=== PATIENT | female | born 1960 | race Caucasian/White ===

== ENCOUNTER 2019-11-20 15:56 | Emergency (ER) | payer OTHER ==
--- OUTSIDE RECORDS SUMMARY | 2019-11-20 17:47 | XMS REPORT | Clinical Summary ---
:1960 Author Organization [facility] Address [address] [place] [address] Care Team Providers Name Role Phone Unavailable Primary Care Provider Unavailable Allergies No Known Allergies Medications Medication Sig Dispensed Refills Start Date End Date Status fLUoxetine (PROZAC) 10 Take 10 mg by 0 Active MG capsule mouth daily. lisinopril Take 10 mg by 0 Activ e (PRINIVIL,ZESTRIL) 10 mouth daily. MG tablet amLODIPine (NORVASC) 10 Take 10 mg by 0 Active MG tablet mouth daily. Active Problems Not on file Social History Tobacco Use Types Packs/Day Years Used Date Never Assessed Sex Assigned at Date Recorded Not on file Job Start Date Occupation Industry Not on file Not on file Not on file Travel History Travel Start Travel End No recent travel history available. Last Filed Vital Signs Not on file Plan of Treatment Not on file Results Not on fileafter 11/19/2018
--- OUTSIDE RECORDS SUMMARY | 2019-11-20 17:47 | XMS REPORT | Clinical Summary ---
:1960 Author Organization [facility] Address [address] [place] [address] Care Team Providers Name Role Phone Sukumar Moura Primary Care Provider Allergies No Known Allergies Medications Medication Sig Dispensed Refills Start Date End Date Status lisinopril 20 mg tablet 1 Take by mouth 0 Active tablet, hydroCHLOROthiazide daily. 25 MG tablet 0.5 tablet FLUoxetine (PROzac) 40 MG Take 40 mg by 0 Active capsule mouth daily. amLODIPine (NORVASC) 5 mg Take 5 mg by 0 Active tablet mouth daily. dextroamphetamine-amphetami Take 30 mg by 0 Active ne (AdderalL) 30 mg tablet mouth daily. acetaminophen (TYLENOL Take by 0 Active ARTHRITIS PAIN ORAL) mouth. Active Problems Problem Noted Date Primary osteoarthritis of right hand 06/30/2019 Overview: Right index finger dip joint Encounters Date Type Specialty Care Team Description 07/01/2019 Surgery Orthopedic Surgery Marilin Calhoun DESIS RIGHT MD Светлана INDEX FINGER DI P JOINT WITH INTE RNAL FIXATION. 07/01/2019 Anesthesia Event Orthopedic Surgery Suraj Harrison MD Jatzlau, Amybeth, APRN 07/01/2019 Hospital Encounter Orthopedic Surgery Marilin Calhoun MD 06/30/2019 Pre-Admit Testing Pre-Admission Marilin Calhoun Preop testing Appointment Testing MD Светлана (Primary Dx) after 11/19/2018 Social History Tobacco Use Types Packs/Day Years Used Date Never Smoker Smokeless Tobacco: Never Used Alcohol Use Drinks/Week oz/Week Comments Yes Sex Assigned at Date Recorded Not on file Job Start Date Occupation Industry Not on file Not on file Not on file Travel History Travel Start Travel End No recent travel history available. Last Filed Vital Signs Vital Sign Reading Time Taken Comments Blood Pressure 124/79 07/01/2019 10:40 AM BOILER ERECTOR Pulse 91 07/01/2019 10:42 AM BOILER ERECTOR Temperature 36.9 C (98.4 F) 07/01/2019 10:42 AM BOILER ERECTOR Respiratory Rate 17 07/01/2019 10:40 AM BOILER ERECTOR Oxygen Saturation 97% 07/01/2019 10:42 AM BOILER ERECTOR Inhaled Oxygen Concentration - - Weight 82.6 kg (182 lb 3.2 oz) 07/01/2019 6:47 AM BOILER ERECTOR Height 165.1 cm (5' 5") 07/01/2019 6:47 AM BOILER ERECTOR Body Mass Index 30.32 07/01/2019 6:47 AM BOILER ERECTOR Plan of Treatment Health Maintenance Due Date Last Done Comments CERVICAL CANCER SCREENING 11/22/1983 BREAST CANCER SCREENING 2012 COLONOSCOPY SCREENING 2012 SHINGLES VACCINES (#1) 2012 INFLUENZA VACCINE 12/27/2019 Implants Implanted Type Area Institution Director Device Shelf Model / Identifier Expiration Serial / Date Lot Screw Bone Micr 2.5x26mm Acutrak 2 - [id number] Orthopedic [employer] AT2 C26 / Implanted: 07/01/2019 at [facility] (Quantity not on file) Trauma I mplants / LOT NA Procedures Procedure Name Priority Date/Time Associated Comments Diagnosis MI AN ELECTIVE Routine 07/01/2019 7:56 Results f or this SUPRAGLOTTIC AIRWAY AM BOILER ERECTOR procedur e are in the results section. ORIF, FINGER 07/01/2019 7:23 Primary AM BOILER ERECTOR osteoarthritis, right hand Case Notes EST 1HR, MINI C-ARM, TRUMPF TABLE, ACCUMED SCREW Special Needs EST 1HR, MINI C-ARM, TRUMPF TABLE, ACCUMED SCREW ECG PRE/POST OP Routine 06/30/2019 3:04 PM Preop testing Resu lts for this BOILER ERECTOR procedure are i n the results section . ESTIMATED GFR Routine 06/30/2019 2:16 PM Results for this BOILER ERECTOR procedure are i n the results section . CBC HEMOGRAM Routine 06/30/2019 2:16 PM Preop testing Results for this BOILER ERECTOR procedure are i n the results section . BASIC METABOLIC PANEL Routine 06/30/2019 2:16 PM Preop testin g Results for this BOILER ERECTOR procedure are i n the results section . after 11/19/2018 Results Airway (07/01/2019 7:56 AM BOILER ERECTOR) Narrative Performed At Ben Mujica 07/01/2019 7:57 AM Airway Date/Time: 07/01/2019 7:29 AM Performed by: Ben Mujica Authorized by: Suraj Harrison MD Location: OR Urgency: Elective Difficult Airway: No Resident/WEB SITE ADMIN/AA: Ben Mujica Preoxygenated with 100% O2: Yes C-spine Precautions Maintained Throughou t: Yes Mask Ventilation: Easy mask Final Airway Type: Supraglottic airway Final LMA: I-Gel LMA Size: 4 Number of Attempts at Approach: 1 atraumatic ECG Pre/Post Op (06/30/2019 3:04 PM BOILER ERECTOR) Pathologist Sig nature Ventricular rate 80 [facility] Atrial rate 80 [facility] MI interval 132 [facility] QRSD interval 74 [facility] QT interval 410 [facility] QTC interval 472 [facility] P axis 1 39 [facility] QRS axis 1 -1 [facility] T wave axis 39 [facility] MUSE EKG impression Normal sinus HM MUSE rhythm-Normal ECG-In automated comparison with ECG of 30-JUN-2019 14:54,-Nonspecific T wave abnormality no longer evident in Anterior leads- Specimen Narrative Performed At This result has an attachment that is no t available. Performing Organization Address City/[facility] Phone Number [facility] [address] [place] [address] Estimated GFR (06/30/2019 2:16 PM BOILER ERECTOR) Estimated GFR >=90 mL/min/1.73 [facility] Comment: m2 HOSPITAL Catergory Units Interpretation G1 >=90 Normal or high G2 60-89 Mildly decreased G3a 45-59 Mildly to moderately decreas ed G3b 30-44 Moderately to severely decre ased G4 15-29 Severely decreased G5 <15 Kidney failure The eGFR was calculated using the Chronic Kidney Disea se Epidemiology Collaboration (CKD-EPI) equation. Interpretation is based on recommendations of the National Kidney Foundation-Kidney Disease Outcomes Tor lity Initiative (NKF-KDOQI) published in 2014. Specimen Plasma specimen Performing Organization Address City/State/Zipcode Phone Number [facility] DEPARTMENT OF PATHOLOGY AND [address] [place], [place] [address] [address] CBC hemogram (06/30/2019 2:16 PM BOILER ERECTOR) [facility] WBC 9.19 4.50 - 11.00 k/uL [facility] RBC 5.12 4.20 - 5.50 m/uL [facility] HGB 15.7 12.0 - 16.0 g/dL [facility] HCT 47.5 (H) 37.0 - 47.0 % [facility] MCV 92.8 82.0 - 100.0 fL [facility] MCH 30.7 27.0 - 34.0 pg [facility] MCHC 33.1 31.0 - 37.0 g/dL [facility] RDW - SD 42.1 37.0 - 55.0 fL [facility] MPV 9.8 8.8 - 13.2 fL [facility] Platelet count 373 150 - 400 k/uL [facility] Nucleated RBC 0.00 /100 WBC [facility] Specimen Blood Performing Organization Address City/[facility]ode Phone Number [facility] DEPARTMENT OF PATHOLOGY AND [address] [place] [address] [phone] [address] Basic metabolic panel (06/30/2019 2:16 PM BOILER ERECTOR) [facility] Sodium 135 135 - 148 mEq/L [facility] Potassium 4.6 3.5 - 5.0 mEq/L [facility] Chloride 95 (L) 98 - 112 mEq/L [facility] CO2 25 24 - 31 mEq/L [facility] Anion gap 15@ANIO 7 - 15 mEq/L [facility] BUN 5 (L) 6 - 20 mg/dL [facility] Creatinine 0.60 0.50 - 0.90 mg/dL [facility] Glucose 129 (H) 65 - 99 mg/dL [facility] Calcium 10.4 (H) 8.3 - 10.2 mg/dL [facility] Specimen Plasma specimen Performing Organization Address City/[facility]ode Phone Number [facility] DEPARTMENT OF PATHOLOGY AND [address] [place] [address] [phone] [address] after 11/19/2018 (Home) [place], [place] [phone] (Work) Advance Directives For more information, please contact: [phone] Type Date Recorded 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
--- OUTSIDE RECORDS SUMMARY | 2019-11-20 17:48 | XMS REPORT ---
:1960 Author Organization [employer] Care Team Providers Name Role Phone Manjit Mourah Provider Role Unavailable Allergies, Adverse Reactions, Alerts Substance Reaction Event Type N.K.D.A. Info Not Available Non Drug Allergy Problems Problem Type Condition Code Onset Dates Condition Statu s Problem Depression with anxiety F41.8 Acti ve Problem Primary osteoarthritis of left M19.042 Active hand Problem HTN, goal below 140/90 I10 Activ e Problem Alcohol abuse F10.10 Active Assessment Noncompliance w/medication Z91.14 A ctive treatment due to intermit use of medication Problem Mixed hyperlipidemia E78.2 Active Assessment Finger pain, right M79.644 Active Problem Other chronic pain G89.29 Active Problem Primary osteoarthritis, right hand M19.041 Active Problem GERD without esophagitis K21.9 Act matthew Problem Insect bite, initial encounter W57.XXXA Active Problem Urinary tract infection, site not N39.0 Active specified Assessment Primary osteoarthritis of left M19.042 Active hand Assessment Primary osteoarthritis, right hand M19.041 Active Assessment Alcohol abuse F10.10 Active Assessment Adult BMI 29.0-29.9 kg/sq m Z68.29 Active Assessment Elevated LFTs R94.5 Active Assessment Mixed hyperlipidemia E78.2 Active Assessment GERD without esophagitis K21.9 Act matthew Assessment HTN, goal below 140/90 I10 Activ e Assessment Depression with anxiety F41.8 Acti ve Medications Medication Code Code Instructions Start End Status Dosage System Date Date Omeprazole ND 31783866889 40 MG Orally Active 1 ca psule Once a day Fluoxetine HCl ND 93769986238 40 MG Orally Active 1 capsule Once a day Pennsaid [facility] 64527305047 2 % Transdermal Active 2 p umps to Twice a day affected area Amlodipine ND 90014838446 5 MG Orally Once Active 1 tablet Besylate a day Lisinopril-Hyd ND 13563865787 20-25 MG Orally Activ e take 1 rochlorothiazi Once a day tablet de daily Lisinopril-Hyd ND 27919145740 20-12.5 MG Active TA KE 1 rochlorothiazi TABLET BY de MOUTH ONCE A DAY Albuterol [facility] 57087027070 108 (90 Base) August Active 2 pu ffs as Sulfate HFA MCG/ACT 2018 needed Inhalation every 6 hrs Results No Known Results Summary Purpose [employer]ClinicalWorks Submission
--- OUTSIDE RECORDS SUMMARY | 2019-11-20 17:48 | XMS REPORT | Continuity of Care Document ---
:1960 Author Organization [facility] t Address [address] [place] [address] Care Team Providers Name Role Phone Sukuamr Moura Primary Care Physician Светлана Calhoun MD Attending Clinician Aldo Harrison MD Attending Clinician Andrew HENDRICKS Attending Clinician RC Admitting Clinician Unavailable Payers Payer Name Policy Type Policy Number Effective Date Expiration Date Rufino BRANDON OPEN xxxxxxxxxxx 2017 [place] ACCESS/NETWORKxx 00:00:00 Methodis t 8-PresentHMO Problems Condition Condition Condition Status Onset Resolution Last Treating Co mments Source Name Details Category Date Date Treatment Clinician Date Primary Primary Disease Active Overview: [place] osteoarthr osteoarthr 2-03 Right Nd thodi itis of itis of 00:00: index st right hand right hand 00 finger dip joint Insect Insect Problem Active [facility] bite, bite, [facility] - initial initial Memoria encounter encounter l Outpati ent Clinics Urinary Urinary Problem Active [facility] tract tract [facility] - infection, infection, Me moria site not site not l specified specified Outp ati ent Clinics HTN, goal HTN, goal Diagnosis Active [facility] below below [facility] - 140/90 140/90 [facility] l Outpati ent Clinics GERD GERD Diagnosis Active [facility] without without [facility] - esophagiti esophagiti Me moria s s l Outpati ent Clinics Primary Primary Diagnosis Active [facility] osteoarthr osteoarthr Emelina kes - itis of itis of Memoria left hand left hand [facility] Depression Depression Diagnosis Active [facility] with with [facility] - anxiety anxiety [facility] Primary Primary Diagnosis Active [facility] osteoarthr osteoarthr Emelina kes - itis, itis, Memoria right hand right hand l [facility] Alcohol Alcohol Diagnosis Active [facility] Mixed Mixed Diagnosis Active [facility] hyperlipid hyperlipid Emelina kes - emia emia [facility] Other Other Problem Active [facility] chronic chronic [facility] - pain pain [facility] Noncomplia Noncomplia Diagnosis Active [facility] nce nce [facility] - w/medicati w/medicati Me moria on on l treatment treatment Outp ati due to due to ent intermit intermit Clinic s use of use of medication medication Finger Finger Diagnosis Active [facility] pain, pain, [facility] - right right [facility] Adult BMI Adult BMI Diagnosis Active [facility] 29.0-29.9 29.0-29.9 Luke s - kg/sq m kg/sq m [facility] Elevated Elevated Diagnosis Active [facility] LFTs LFTs [facility] - [facility] Allergies, Adverse Reactions, Alerts This patient has no known allergies or adverse reactions. Social History Social Habit Start Date Stop Date Quantity Comments Source Sex Assigned At [facility] ethodist Alcohol intake 2019-07-01 2019-07-01 Current drinker Aishwarya on Denominational 00:00:00 00:00:00 of alcohol (finding) Smoking Status Start Date Stop Date Source Never smoker [facility] Medications Ordered Filled Start Stop Current Ordering Indication Dosage Frequency Signature Comments Components Source Medication Medication Date Date Medication? Clinician (SIG) Name Name Atorvastati Atorvastati Yes Gucci [address] n Calcium n Calcium 6-09 Moura Luke s - 00:00: Memoria 00 [facility] lisinopril Yes QD Take by [place] 20 mg 2-04 mouth Methodi tablet 1 10:51: daily. st tablet, 42 hydroCHLORO thiazide 25 MG tablet 0.5 tablet FLUoxetine Yes 40mg QD Take 40 mg [place] (PROzac) 40 2-04 by mouth Meth sherman MG capsule 10:51: daily. st 42 amLODIPine Yes 5mg QD Take 5 mg [place] (NORVASC) 5 2-04 by mouth Meth sherman mg tablet 10:51: daily. st 42 dextroamphe Yes 30mg QD Take 30 mg Shannon tamine-amph 2-04 by mouth Meth sherman etamine 10:51: daily. st (AdderalL) 42 30 mg tablet acetaminoph Yes Take by Kristie infanteferny en (TYLENOL 2-04 mouth. Method i ARTHRITIS 10:51: st PAIN ORAL) 42 Albuterol Albuterol Yes Gucci [address] Sulfate HFA Sulfate HFA 4-13 Moura needed [facility] - 00:[facility]: [facility] Omeprazole Omeprazole Yes Gucci [address] [facility] 7-31 Moura [facility] - 00:[facility]: [facility] 00 [facility] fLUoxetine Yes 10mg QD Take [address] (PROZAC) 10 3-01 by mouth Luke s - MG capsule 12:00: daily. Medic al 01 Center lisinopril Yes 10mg QD Take [address] (PRINIVIL,Z 3- by mouth Luke s - ESTRIL) 10 12:00: daily. Medic al MG tablet 01 Center amLODIPine Yes 10mg QD Take [address] (NORVASC) 3-01 by mouth [facility] - 10 MG 12:00: daily. Medical tablet 01 Center Amlodipine Amlodipine Yes Gucci [address] [facility] Besylate Besylate Moura [facility] Pennsaid Pennsaid Yes Gucci [address] [facility] [facility] Moura affected [facility] - area [facility]oria l Outpati ent Clinics Fluoxetine Fluoxetine Yes Gucci [address] HCl HCl Moura [facility] Lisinopril- Lisinopril- Yes Gucci take [address] [facility] [facility] Hydrochloro Hydrochloro Moura tablet [facility] - thiazide thiazide daily [facility] a [facility] Immunizations Ordered Filled Immunization Date Status Comments Sour e Immunization Name Name Afluria single dose Afluria single dose 2019-06-[address] [facility] [facility] - 00:[facility]00 [facility] Vital Signs Vital Name Observation Time Observation Value Comments Source Heart rate 2019-07-01 10:42:00 91 /min Shiva Eduardo Body temperature 2019-07-01 10:42:00 36.89 Nanette [place] [facility]ational Oxygen saturation in 2019-07-01 10:42:00 97 /min Shiva Eduardo Arterial blood by Pulse oximetry Systolic blood 2019-07-01 10:40:00 124 mm[Hg] Sirishato n Denominational pressure Diastolic blood 2019-07-01 10:40:00 79 mm[Hg] Sirishat on Denominational pressure Respiratory rate 2019-07-01 10:40:00 17 /min [place] [facility] Body height 2019-07-01 06:47:00 165.1 cm Shiva Eduardo Body weight 2019-07-01 06:47:00 82.645 kg Shiva Eduardo BMI 2019-07-01 06:47:00 30.32 kg/m2 Shiva Eduardo Procedures Procedure Date / Time Performed Performing Clinician Sourc e WI AN ELECTIVE 2019-07-01 07:56:49 Ben Mujica Nd thodist SUPRAGLOTTIC AIRWAY ORIF, FINGER 2019-07-01 07:23:00 Dai Calhoun ECG PRE/POST OP 2019-06-30 15:04:16 Shadi Morales Met jannette BASIC METABOLIC PANEL 2019-06-30 14:16:00 Shadi Morales on Denominational CBC HEMOGRAM 2019-06-30 14:16:00 Shadi Morales Met jannette ESTIMATED GFR 2019-06-30 14:16:00 Shadi Morales Met jannette Plan of Care Planned Activity Planned Date Details Comments Source Future Scheduled 2019-12-27 INFLUENZA VACCINE Sirishato n Denominational Test 00:00:00 [code = INFLUENZA VACCINE] Future Scheduled 2012 BREAST CANCER Shannon Me thodist Test 00:00:00 SCREENING [code = BREAST CANCER SCREENING] Future Scheduled 2012 COLONOSCOPY SCREENING Jesus farnsworth Denominational Test 00:00:00 [code = COLONOSCOPY SCREENING] Future Scheduled 2012 SHINGLES VACCINES Sirishato n Denominational Test 00:00:00 (#1) [code = SHINGLES VACCINES (#1)] Future Scheduled 1981-11-22 Screening for [place] Me thodist Test 00:00:00 malignant neoplasm of cervix (procedure) [code = 179752281] Encounters Start End Encounter Admission Attending Care Care Encounter Source Date/Time Date/Time Type Type Clinicians Facility Department ID 2019-11-04 2019-11-04 [facility] [id number] 11:45:00 11:45:00 t [facility] [employer] [facility] l Medicine Outpati ent Clinics 2019-09-03 2019-09-03 [facility] [id number] 14:30:00 14:30:00 t [employer] [facility] [employer] [facility] l Medicine Outpati ent Clinics 2019-07-31 2019-07-31 [facility] [id number] 07:58:00 07:58:00 t [employer] [facility] [employer] [facility] l Medicine Outpati ent Clinics 2019-07-28 2019-07-28 [facility] [id number] 09:00:00 09:00:00 t [employer] [facility] l Medicine Outpati ent Clinics 2019-07-01 2019-07-01 Outpatient [facility] [id number] [place] [address] 00:00:00 00:00:[address] DAI [address] 2019-06-23 2019-06-23 [facility] [id number] 16:32:00 16:32:00 t [employer] [facility] l Medicine Outpati ent Clinics 2019-06-12 2019-06-12 [facility] [id number] 08:26:00 08:26:00 t [employer] [facility] l Medicine Outpati ent Clinics 2019-06-05 2019-06-05 [facility] [id number] 14:30:00 14:30:00 t [employer] [facility] l Medicine Outpati ent Clinics 2019-05-06 2019-05-06 [facility] [id number] 16:00:00 16:00:00 t [employer] [facility] ent [facility] 2018-09-07 2018-09-07 [facility] [id number] 09:15:00 09:15:00 t Urgent Urgent Care L [facility] 2018-06-13 2018-06-13 [facility] [id number] 10:30:00 10:30:00 t [employer] [facility] 2018-01-16 2018-01-16 [facility] [id number] 10:45:00 10:45:00 t Urgent Urgent Care L [facility] Results Test Description Test Time Test Comments Results Result Comments Source ECG Pre/Post Op 2019-07-01 11:42:34 Test Item Value Reference Range Interpretation Comme nts Ventricular rate (test code = 253) 80 Atrial rate (test code = 255) 80 WI interval (test code = 266) 132 QRSD interval (test code = 260) 74 QT interval (test code = 264) 410 QTC interval (test code = 265) 472 P axis 1 (test code = 267) 39 QRS axis 1 (test code = 268) -1 T wave axis (test code = 270) 39 EKG impression (test code = 273) Normal sinus rhythm-Normal ECG-In automated comparison with ECG of 30-JUN-2019 14:54,-Nonspecific T wave abnormality no longer evident in Anterior leads- Shannon [id number] 07:56:49Ben Mujica 07/01/2019 7:57 AMAirwayDate/Time: 07/01/2019 7:29 AMPerformed by: Nely Mujica.Authorized by: Suraj Harrison MD Location: ORUrgency: ElectiveDifficult Airway: No Resident/SOLID TIRE FINISHER/AA: Ben MujicaPreoxygenated with 100% O2: Yes C-spine Precautions Maintained Throughout: Yes Mask Ventilation: Easy maskFinal Airway Type: Supraglottic airwayFinal LMA: I-GelLMA Size: 4Number of Attempts at Approach: 1 atraumaticPoulan MethodistBasic metabolic [id number] 17:21:52 Test Item Value Reference Range Interpretation Comments Sodium (test code = 2951-2) 135 135- 148 mEq/L Potassium (test code = 2823-3) 4.6 3.5- 5.0 mEq/L Chloride (test code = 2075-0) 95 98- 112 mEq/L L CO2 (test code = 8-9) 25 24- 31 mEq/L Anion gap (test code = 79784-5) 15@ANIO 7- 15 mEq/L BUN (test code = 3094-0) 5 mg/dL 6-20 L Creatinine (test code = 2160-0) 0.60 mg/dL 0.5-0.9 Glucose (test code = 2345-7) 129 mg/dL 65-99 H Calcium (test code = 94349-6) 10.4 mg/dL 8.3-10.2 H Lab Interpretation (test code = Abnormal 61532-5) [place] MethodistEstimated [id number] 17:21:52 Test Item Value Reference Range Interpretation Comments Estimated GFR (test >=90 mL/min/1.73 m2 [facility] Units code = 5488) InterpretationG 1 >=90 Normal or highG2 60-89 Mildly cwwxrdqrrQ5s 45-59 Mildly to mode rately pvtsvymsdC0g 30-44 Moderately to severely decreasedG4 15-29 Severely decre asedG5 <15 Kidn ey failureThe eGFR was calculated dee gallegos the Chronic Kidney Disease Epidemiology Co llaboration (CKD-EPI) equat ion. Interpretation is based on recommendations of the National Kidney Foundation-Kidn ey Disease Outcomes Qualit y Initiative (NKF-KDOQI) pub lished in 2014. [facility] [id number] 16:55:50 Test Item Value Reference Range Interpretation Comments WBC (test code = 67202-4) 9.19 4.50- 11.00 k/uL RBC (test code = 66900-1) 5.12 m/uL 4.2-5.5 HGB (test code = 718-7) 15.7 g/dL 12-16 HCT (test code = 4544-3) 47.5 % 37-47 H MCV (test code = 787-2) 92.8 fL 82-100 MCH (test code = 785-6) 30.7 pg 27-34 MCHC (test code = 786-4) 33.1 g/dL 31-37 RDW - SD (test code = 12932-5) 42.1 fL 37-55 MPV (test code = 54415-0) 9.8 fL 8.8-13.2 Platelet count (test code = 373 150- 400 k/uL 01116-0) Nucleated RBC (test code = 0.00 /100 WBC 73048-4) Lab Interpretation (test code = Abnormal 56378-0) Shiva Eduardo
--- OUTSIDE RECORDS SUMMARY | 2019-11-20 17:48 | XMS REPORT ---
[...] Status Dosage System Date Date Omeprazole ND [id number] 40 MG Orally Active 1 ca psule Once a day Lisinopril-[place] ND 85081422511 20-25 MG Orally Act matthew take 1 chlorothiazide Once a day tablet daily Pennsaid ND 58029518527 2 % Transdermal Active 2 p umps to Twice a day affected area Albuterol ND 65570918055 108 (90 Base) August Active 2 pu ffs as Sulfate HFA MCG/ACT 2018 needed Inhalation every 6 hrs Atorvastatin ND 89162572858 10 MG Orally Minerva 09, Active 1 tablet Calcium Once a day 2019 Fluoxetine HCl [facility] 25205889881 40 MG Orally Active 1 capsule Once a day Amlodipine [facility] 34701713183 5 MG Orally Active 1 tab let Besylate Once a day Results No Known Results Summary Purpose eClinicalWorks Submission
[2019-11-20] MEDS ORDERED: NA CHLORIDE 0.9% 1,000 ML ONE (17:55)
[2019-11-20 18:09] LABS: Basophils % 0.8 % (0-1.3); Hematocrit 44.3 % (36.0-45.0); Lymphocytes % 17.2 % (15.3-44.8); MPV 7.4 fL (7.6-11.3); RBC Red Blood Cell Count 4.85 M/uL (3.86-4.86)
--- NOTE | 2019-11-20 18:18 | RAD REPORT ---
EXAM DESCRIPTION: CT - Abdomen Pelvis W Contrast - 11/20/2019 6:06 pm CLINICAL HISTORY: ABD PAIN COMPARISON: <Comparisons> TECHNIQUE: Biphasic, helical CT imaging of the abdomen and pelvis was performed following 100 ml non -ionic IV contrast. No oral contrast. All CT scans are performed using dose optimization technique as appropriate and may include automated exposure control or mA/KV adjustment according to patient size. FINDINGS: No suspicious findings in the lung bases. Right breast prosthesis in place. Diffuse fatty infiltration is present in the liver. No focal liver lesion. Spleen and pancreas show n o suspicious findings. Gallbladder and biliary tree are also without suspicious finding. Symmetric renal function is seen with no hydronephrosis or suspicious renal mass. No pyelonephritis o r acute parenchymal process. No bladder abnormalities. No adrenal abnormalities. Uterus and ovaries s how no suspicious findings. No gastric dilatation or wall thickening. No dilated large or small bowel. Fluid-filled colon and dis anny small bowel loops noted. No wall thickening or mass. No free air, free fluid or inflammatory str anding. No mass or bulky lymphadenopathy. Small fat only umbilical hernia. No suspicious bony findings. IMPRESSION: No bowel obstruction, free air or emergent finding. Fluid-filled colon and distal small bowel most likely a nonspecific enteritis.
[2019-11-20 18:29] LABS: ALT/SGPT 81 U/L (12-78); AST/SGOT 69 U/L (15-37); Alkaline Phosphatase 110 U/L (45-117); BUN Blood Urea Nitrogen 7 mg/dL (7-18); Bicarbonate 28 mmol/L (21-32); Bilirubin Direct 0.2 mg/dL (0-0.2); Bilirubin Total 0.6 mg/dL (0.2-1.0); Glucose Level 121 mg/dL (74-106); Lipase 159 U/L (73-393); Potassium 3.3 mmol/L (3.5-5.1); Protein, Total 8.2 g/dL (6.4-8.2); Sodium Level 133 mmol/L (136-145)
[2019-11-20] MEDS ORDERED: POTASSIUM CL SA 10 MEQ TAB PO ONE (18:44)
--- NOTE | 2019-11-20 18:52 | EDPHYS ---
Physician Documentation [facility] Name: Patience Montejo Age: 58 yrs Sex: Female : 1960 Arrival Date: 11/20/2019 Time: 16:00 Bed 8 Private MD: [facility] ED Physician Ponce Otero HPI: 11/19 18:21 This 58 yrs old Female presents to ER via Ambulatory with complaints of kb Abdominal Pain, Diarrhea. 18:21 The patient presents with abdominal pain in the upper abdomen. Onset: The kb symptoms/episode began/occurred today. The symptoms do not radiate. Associated signs and symptoms: Pertinent positives: diarrhea. The symptoms are described as constant. Modifying factors: The symptoms are alleviated by nothing, the symptoms are aggravated by nothing. Severity of pain: At its worst the pain was moderate in the emergency department the pain is unchanged. The patient has not experienced similar symptoms in the past. The patient has not recently seen a physician. PT reports diarrhea for 4 days and upper abd pain today that has been intermittent. . Historical: - Allergies: 16:17 No Known Allergies; ll1 - PMHx: 16:17 High Cholesterol; Hypertension; ll1 - PSHx: 16:17 ; ll1 - Immunization history:: Flu vaccine is up to date. - Social history:: Smoking status: Patient denies any tobacco usage or history of. Patient uses alcohol, occasionally. only on a social basis. street drugs, marijuana, Patient/guardian denies using IV drugs. ROS: 18:21 Constitutional: Negative for fever, chills, and weight loss, Cardiovascular: Negative kb for chest pain, palpitations, and edema, Respiratory: Negative for shortness of breath, cough, wheezing, and pleuritic chest pain, Back: Negative for injury and pain, MS/Extremity: Negative for injury and deformity, Skin: Negative for injury, rash, and discoloration, Neuro: Negative for headache, weakness, numbness, tingling, and seizure. 18:21 Abdomen/GI: Positive for abdominal pain, diarrhea, Negative for nausea and vomiting. Exam: 18:21 Constitutional: This is a well developed, well nourished patient who is awake, alert, kb and in no acute distress. Head/Face: Normocephalic, atraumatic. Chest/axilla: Normal chest wall appearance and motion. Nontender with no deformity. No lesions are appreciated. Cardiovascular: Regular rate and rhythm with a normal S1 and S2. No gallops, murmurs, or rubs. Normal PMI, no JVD. No pulse deficits. Respiratory: Lungs have equal breath sounds bilaterally, clear to auscultation and percussion. No rales, rhonchi or wheezes noted. No increased work of breathing, no retractions or nasal flaring. Abdomen/GI: Soft, non-tender, with normal bowel sounds. No distension or tympany. No guarding or rebound. No evidence of tenderness throughout. Back: No spinal tenderness. No costovertebral tenderness. Full range of motion. Skin: Warm, dry with normal turgor. Normal color with no rashes, no lesions, and no evidence of cellulitis. MS/ Extremity: Pulses equal, no cyanosis. Neurovascular intact. Full, normal range of motion. Neuro: Awake and alert, GCS 15, oriented to person, place, time, and situation. Cranial nerves II-XII grossly intact. Motor strength 5/5 in all extremities. Sensory grossly intact. Cerebellar exam normal. Normal gait. Vital Signs: 16:18 BP 127 / 95; Pulse 88; Resp 17; Temp 97.8; Pulse Ox 100% ; Pain 5/10; ll1 18:10 BP 127 / 86; Pulse 78; Resp 18; Pulse Ox 99% on R/A; Pain 0/10; em MDM: 17:35 Patient medically screened. 18:24 Data reviewed: vital signs, nurses notes. Data interpreted: Pulse oximetry: on room air kb is 100 %. Interpretation: normal. 18:50 Counseling: I had a detailed discussion with the patient and/or guardian regarding: the kb historical points, exam findings, and any diagnostic results supporting the discharge/admit diagnosis, lab results, radiology results, the need for outpatient follow up, a family practitioner, to return to the emergency department if symptoms worsen or persist or if there are any questions or concerns that arise at home. 11/19 17:45 Order name: Basic Metabolic Panel; Complete Time: 18:32 kb 11/19 17:45 Order name: CBC with Diff; Complete Time: 18:12 kb 11/19 17:45 Order name: Hepatic Function; Complete Time: 18:32 kb 11/19 17:45 Order name: Lipase; Complete Time: 18:32 kb 11/19 17:45 Order name: CT Abd/Pelvis - IV Contrast Only; Complete Time: 18:20 kb 11/19 17:45 Order name: IV Saline Lock; Complete Time: 17:59 kb 11/19 17:45 Order name: Labs collected and sent; Complete Time: 17:59 kb Administered Medications: 17:59 Drug: NS 0.9% 1000 ml Route: IV; Rate: 1000 ml; Site: right forearm; em 19:12 Follow up: IV Status: Completed infusion; IV Intake: 1000ml em 18:40 Drug: Potassium Chloride 20 mEq Route: PO; em 19:12 Follow up: Response: No adverse reaction em Disposition: 19:34 Co-signature as Attending Physician, Ponce Otero MD. mh7 Disposition: 11/20/19 18:51 Discharged to Home. Impression: Diarrhea, unspecified - enteritis, Upper abdominal pain, unspecified. - Condition is Stable. - Discharge Instructions: Food Choices to Help Relieve Diarrhea, Adult, Diarrhea, Adult, [id number]. - Prescriptions for Bentyl 20 mg Oral Tablet - take 1 tablet by ORAL route every 6 hours As needed; 20 tablet. - Medication Reconciliation Form, Thank You Letter, Antibiotic Education, Prescription Opioid Use form. - Follow up: Private Physician; When: 2 - 3 days; Reason: Recheck today's complaints, Continuance of care, Re-evaluation by your physician. Follow up: Emergency Department; When: As needed; Reason: Worsening of condition. Signatures: Dispatcher [employer] Lexus Sow, JAKOB-C SHREDDING SPECIALIST-Farshad Giles RN RN em James Mujica RN RN 1 Ponce Otero MD MD 7 Corrections: (The following items were deleted from the chart) 19:14 18:51 11/20/2019 18:51 Discharged to Home. Impression: Diarrhea, unspecified - em enteritis; Upper abdominal pain, unspecified. Condition is Stable. Forms are Medication Reconciliation Form, Thank You Letter, Antibiotic Education, Prescription Opioid Use. Follow up: Private Physician; When: 2 - 3 days; Reason: Recheck today's complaints, Continuance of care, Re-evaluation by your physician. Follow up: Emergency Department; When: As needed; Reason: Worsening of condition. kb
--- NOTE | 2019-11-20 18:52 | ER ---
Nurse's Notes [facility] Name: Patience Montejo Age: 58 yrs Sex: Female : 1960 Arrival Date: 11/20/2019 Time: 16:00 Bed 8 Private MD: Gucci Moura Diagnosis: Diarrhea, unspecified-enteritis;Upper abdominal pain, unspecified Presentation: 11/19 16:18 Chief complaint: Patient states: Diarrhea for 4 days with upper abdominal pain. Slight ll1 nausea, no fever. Coronavirus screen: Proceed with normal triage. Patient denies a cough. Patient denies shortness of breath or difficulty breathing. Patient denies measured and/or subjective temperature greater than 100.4F prior to today's visit. Patient denies travel on a cruise ship or to a country the [facility] currently lists as an affected area. Patient denies contact with known and/or suspected case of COVID-19. Ebola Screen: Patient denies travel to an Ebola-affected area in the 21 days before illness onset. Initial Sepsis Screen: Does the patient meet any 2 criteria? No. Patient's initial sepsis screen is negative. Risk Assessment: Do you want to hurt yourself or someone else? Patient reports no desire to harm self or others. Onset of symptoms was November 16, 2019. 16:18 Method Of Arrival: Ambulatory ll1 16:18 Acuity: PEDRO 3 ll1 Historical: - Allergies: 16:17 No Known Allergies; ll1 - PMHx: 16:17 High Cholesterol; Hypertension; ll1 - PSHx: 16:17 ; ll1 - Immunization history:: Flu vaccine is up to date. - Social history:: Smoking status: Patient denies any tobacco usage or history of. Patient uses alcohol, occasionally. only on a social basis. street drugs, marijuana, Patient/guardian denies using IV drugs. Screenin:50 Abuse screen: Denies threats or abuse. Nutritional screening: No deficits noted. em Tuberculosis screening: No symptoms or risk factors identified. Fall Risk None identified. Assessment: 17:50 General: Appears in no apparent distress. comfortable, Behavior is calm, cooperative, em appropriate for age, Denies fever. Pain: Complains of pain in right upper quadrant and left upper quadrant Pain currently is 0 out of 10 on a pain scale. Pain began 4 days ago. Neuro: Level of Consciousness is awake, alert, obeys commands, Oriented to person, place, time, situation, Appropriate for age Moves all extremities. Speech is normal. Cardiovascular: Capillary refill < 3 seconds Patient's skin is warm and dry. Chest pain is denied. Respiratory: Airway is patent Respiratory effort is even, unlabored, Respiratory pattern is regular, symmetrical. GI: Abdomen is flat, Bowel sounds present X 4 quads. Abd is soft and non tender X 4 quads. Reports diarrhea, Patient currently denies nausea, vomiting. Derm: Skin is intact, is healthy with good turgor, Skin is pink, warm \T\ dry. Musculoskeletal: Capillary refill < 3 seconds, Range of motion: intact in all extremities. Vital Signs: 16:18 BP 127 / 95; Pulse 88; Resp 17; Temp 97.8; Pulse Ox 100% ; Pain 5/10; ll1 18:10 BP 127 / 86; Pulse 78; Resp 18; Pulse Ox 99% on R/A; Pain 0/10; em ED Course: 16:00 Patient arrived in ED. mr 16:00 Gucci Moura, is Private Physician. mr 16:17 Arm band placed on Patient notified of wait time. ll1 16:19 Triage completed. ll1 17:34 [facility] kb 17:34 Ponce Otero MD is Attending Physician. kb 17:38 Farshad Chew, GEORGINA is Primary Nurse. em 17:48 Patient has correct armband on for positive identification. Placed in gown. Bed in low mh5 position. Call light in reach. Side rails up X 1. Warm blanket given. Pulse ox on. NIBP on. 17:58 Initial lab(s) drawn, by me, sent to lab. Inserted saline lock: 22 gauge in right em forearm, using aseptic technique. Blood collected. 18:06 CT Abd/Pelvis - IV Contrast Only In Process Unspecified. EDMS 19:13 No provider procedures requiring assistance completed. IV discontinued, intact, em bleeding controlled, No redness/swelling at site. Pressure dressing applied. Administered Medications: 17:59 Drug: NS 0.9% 1000 ml Route: IV; Rate: 1000 ml; Site: right forearm; em 19:12 Follow up: IV Status: Completed infusion; IV Intake: 1000ml em 18:40 Drug: Potassium Chloride 20 mEq Route: PO; em 19:12 Follow up: Response: No adverse reaction em Intake: 19:12 IV: 1000ml; Total: 1000ml. em Outcome: 18:51 Discharge ordered by . kb 19:13 Discharged to home ambulatory. em 19:13 Condition: good 19:13 Discharge instructions given to patient, Instructed on discharge instructions, follow up and referral plans. medication usage, Demonstrated understanding of instructions, follow-up care, medications, Prescriptions given X 1. 19:14 Patient left the ED. em Signatures: Dispatcher [employer] EDMS Lexus Mann, JACK TAMP OPERATOR-C JACK TAMP OPERATOR-Ckb Yamilet Alonso Edgar, RN RN Nena Stuart [facility] James Mujica RN RN ll1
[2019-11-20 19:49] VITALS: TEMP 97.8
[2019-11-20 20:31] VITALS: BP 127/86; O2SAT 99
== END 2019-11-20 19:14 | disposition home or self-care (01) ==
LOC: ER 15:56
DX: K52.9 Noninfective gastroenteritis and colitis, unspecified (principal); I10 Essential (primary) hypertension
CPT/HCPCS: 85025; 80048; 36415; 82565; 80076; 83690; 74177; 96360; 99284; Q9967; J7030

== ENCOUNTER 2020-04-06 11:26 | Emergency (ER) | payer OTHER ==
--- OUTSIDE RECORDS SUMMARY | 2020-04-06 11:46 | XMS REPORT | Clinical Summary ---
:1960 Author Organization [facility] [employer] Address [address] [place] [id number] Care Team Providers Name Role Phone Sukumar Moura DO Primary Care Provider Allergies No Known Active Allergies Medications Medication Sig Dispensed Refills Start [...] Team Description 07/01/2019 Surgery Orthopedic Surgery Marilin CalhounRO DESIS RIGHT MD Светлана INDEX FINGER DI P JOINT WITH INTE RNAL FIXATION. 07/01/2019 Anesthesia Event Orthopedic Surgery Suraj Harrison MD Jatzlau, Amybeth, APRN 07/01/2019 Hospital Encounter Orthopedic Surgery Marilin Calhoun MD 06/30/2019 Pre-Admit Testing Pre-Admission Marilin Calhoun Preop testing Appointment Testing MD Светлана (Primary Dx) after 04/06/2019 Surgical History Surgery Date Site/Laterality Comments REDUCTION MAMMAPLASTY AUGMENTATION, BREAST, WITH PROSTHETIC IMPLANT ORIF, FINGER 07/01/2019 Hand/Right Procedure: ARTHR ODESIS RIGHT INDEX FINGER DIP JOINT WITH INTERNAL FIXATIO N.; Surgeon: Marilin Calhoun MD; Location: [facility] OP C 19 OR; Service: Hand; Laterality: Right; Medical devices from this surgery are in t he Implants section. Medical History Medical History Date Comments History of Hypertension Hypercholesteremia Depression Chronic UTI no uti in the past y ear Arthritis Anesthesia npapa/nfhap Dasi 8 .23 deies chest pain or sob Does not exercise can climb stairs Social History Tobacco Use Types Packs/Day Years Used Date Never Smoker Smokeless Tobacco: Never Used Alcohol Use Drinks/Week oz/Week Comments Yes Sex Assigned at Date Recorded Not on file Last Filed Vital Signs Vital Sign Reading Time Taken Comments Blood Pressure 124/79 07/01/2019 10:40 AM ACID WASHER OPERATOR Pulse 91 07/01/2019 10:42 AM ACID WASHER OPERATOR Temperature 36.9 C (98.4 F) 07/01/2019 10:42 AM ACID WASHER OPERATOR Respiratory Rate 17 07/01/2019 10:40 AM ACID WASHER OPERATOR Oxygen Saturation 97% 07/01/2019 10:42 AM ACID WASHER OPERATOR Inhaled Oxygen Concentration - - Weight 82.6 kg (182 lb 3.2 oz) 07/01/2019 6:47 AM ACID WASHER OPERATOR Height 165.1 cm (5' 5") 07/01/2019 6:47 AM ACID WASHER OPERATOR Body Mass Index 30.32 07/01/2019 6:47 AM ACID WASHER OPERATOR Plan of Treatment Health Maintenance Due Date Last Done Comments CERVICAL CANCER SCREENING 11/22/1983 BREAST CANCER SCREENING 2012 COLONOSCOPY SCREENING 2012 SHINGLES VACCINES (#1) 2012 INFLUENZA VACCINE 12/27/2019 Implants Implanted Type Area Licensed And Certified Midwife Device Shelf Model / Identifier Expiration Serial / Date Lot Screw Bone Micr 2.5x26mm Acutrak 2 - [id number] Orthopedic [employer] AT2 C26 / Implanted: 07/01/[address] [facility] (Quantity not on file) Trauma I mplants / LOT NA Procedures Procedure Name Priority Date/Time Associated Comments Diagnosis MN AN ELECTIVE Routine 07/01/2019 7:56 Results f or this SUPRAGLOTTIC AIRWAY AM ACID WASHER OPERATOR procedur e are in the results section. ORIF, FINGER 07/01/2019 7:23 Primary AM ACID WASHER OPERATOR osteoarthritis, right hand Case Notes EST 1HR, MINI C-ARM, TRUMPF TABLE, ACCUMED SCREW Special Needs EST 1HR, MINI C-ARM, TRUMPF TABLE, ACCUMED SCREW ECG PRE/POST OP Routine 06/30/2019 3:04 PM Preop testing Resu lts for this ACID WASHER OPERATOR procedure are i n the results section . ESTIMATED GFR Routine 06/30/2019 2:16 PM Results for this ACID WASHER OPERATOR procedure are i n the results section . CBC HEMOGRAM Routine 06/30/2019 2:16 PM Preop testing Results for this ACID WASHER OPERATOR procedure are i n the results section . BASIC METABOLIC PANEL Routine 06/30/2019 2:16 PM Preop testin g Results for this ACID WASHER OPERATOR procedure are i n the results section . after 04/06/2019 Results Airway (07/01/2019 7:56 AM ACID WASHER OPERATOR) Narrative Performed At Ben Mujica 07/01/2019 7:57 AM Airway Date/Time: 07/01/2019 7:29 AM Performed by: Ben Mujica Authorized by: Suraj Harrison MD Location: OR Urgency: Elective Difficult Airway: No Resident/LOCAL AREA NETWORK SYSTEMS ADMINSTRATOR/AA: Ben Mujica Preoxygenated with 100% O2: Yes C-spine Precautions Maintained Throughou t: Yes Mask Ventilation: Easy mask Final Airway Type: Supraglottic airway Final LMA: I-Gel LMA Size: 4 Number of Attempts at Approach: 1 atraumatic ECG Pre/Post Op (06/30/2019 3:04 PM ACID WASHER OPERATOR) Pathologist Sig nature Ventricular rate 80 [facility] Atrial rate 80 [facility] MN interval 132 [facility] QRSD interval 74 [facility] QT interval 410 [facility] QTC interval 472 [facility] P axis 1 39 [facility] QRS axis 1 -1 [facility] T wave axis 39 [facility] EKG impression Normal sinus [facility] rhythm-Normal ECG-In automated comparison with ECG of 30-JUN-2019 14:54,-Nonspecific T wave abnormality no longer evident in Anterior leads- Specimen Narrative Performed At This result has an attachment that is no t available. Performing Organization Address City/State/ZIP Code Phon e Number [facility] MUSE [address] [facility] [place] [address] Estimated GFR (06/30/2019 2:16 PM ACID WASHER OPERATOR) Estimated GFR >=90 mL/min/1.73 [facility] Comment: HOSPITAL Catergory Units Interpretation G1 >=90 Normal [...] 2014. Specimen Plasma specimen Performing Organization Address [facility] Phon e Number [facility] DEPARTMENT OF PATHOLOGY AND [address] [place] [address] [phone] [address] CBC hemogram (06/30/2019 2:16 PM ACID WASHER OPERATOR) Pathologist Sig formerly [facility], 1928–1983 WBC 9.19 4.50 - 11.00 k/uL [facility] RBC 5.12 4.20 - 5.50 m/uL [facility] HGB 15.7 12.0 - 16.0 g/dL [facility] HCT 47.5 (H) 37.0 - 47.0 % [facility] MCV 92.8 82.0 - 100.0 fL [facility] MCH 30.7 27.0 - 34.0 pg [facility] MCHC 33.1 31.0 - 37.0 g/dL [facility] RDW - SD 42.1 37.0 - 55.0 fL [facility] MPV 9.8 8.8 - 13.2 fL [facility] Platelet count 373 150 - 400 k/uL [facility] Nucleated RBC 0.00 /100 WBC [facility] Specimen Blood Performing Organization Address City/[facility] Phon e Number [facility] DEPARTMENT OF PATHOLOGY AND [address] [place] [address] [phone] [address] Basic metabolic panel (06/30/2019 2:16 PM ACID WASHER OPERATOR) [facility] Sodium 135 135 - 148 mEq/L [facility] Potassium 4.6 3.5 - 5.0 mEq/L [facility] Chloride 95 (L) 98 - 112 mEq/L [facility] CO2 25 24 - 31 mEq/L [facility] Anion gap 15@ANIO 7 - 15 mEq/L [facility] BUN 5 (L) 6 - 20 mg/dL [facility] Creatinine 0.60 0.50 - 0.90 mg/dL [facility] Glucose 129 (H) 65 - 99 mg/dL [facility] Calcium 10.4 (H) 8.3 - 10.2 mg/dL [facility] Specimen Plasma specimen Performing Organization Address City/State/ZIP Code Phon e Number [facility] DEPARTMENT OF PATHOLOGY AND [address] [place], [place] [address] GENOMIC MEDICINE [facility] [address] [place] [address] after 04/06/2019 (Home) [place], [place] [phone] (Work) Advance Directives For more information, please contact: [phone] Type Date Recorded Patient Music Manager Explanati on Advance Directives, Living Will and Medical Power of Torch Operator
--- OUTSIDE RECORDS SUMMARY | 2020-04-06 11:46 | XMS REPORT | Clinical Summary ---
:1960 Author Organization [facility] Address [address] [place] [address] Care Team Providers Name Role Phone Unavailable [...] Not on file Last Filed Vital Signs Not on file Plan of Treatment Not on file Results Not on fileafter 04/06/2019
--- OUTSIDE RECORDS SUMMARY | 2020-04-06 11:47 | XMS REPORT ---
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
--- OUTSIDE RECORDS SUMMARY | 2020-04-06 11:47 | XMS REPORT ---
:1960 Author Organization eClinicalWorks Care Team Providers Name Role Phone Moura [facility] Provider Role Unavailable Allergies No Known [...]
--- OUTSIDE RECORDS SUMMARY | 2020-04-06 11:47 | XMS REPORT ---
:1960 Author Organization eClinicalWorks Care Team Providers Name Role Phone Yady Fosterjuli Provider Role Unavailable Allergies, Adverse Reactions, Alerts Substance Reaction Event Type N.K.D.A. 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 Problem Urinary tract infection, site not N39.0 Active specified Problem Primary osteoarthritis, right hand M19.041 Active Problem Mixed hyperlipidemia E78.2 Active Problem Insect bite, initial encounter W57.XXXA Active Assessment Primary osteoarthritis, right hand M19.041 Active Assessment GERD without esophagitis K21.9 Act matthew Assessment Mixed hyperlipidemia E78.2 Active Assessment Primary osteoarthritis of left M19.042 Active hand Assessment Suspected 2019-nCoV infection Z20.828 Active Assessment Fever R50.9 Active Assessment Depression with anxiety F41.8 Acti ve Assessment HTN, goal below 140/90 I10 Activ e Problem HTN, goal below 140/90 I10 Activ e Medications Medication Code Code Instructions Start End Status Dosage System Date Date Omeprazole NDC 92613172890 40 MG Orally Active 1 ca psule Once a day Albuterol ND 29179241378 108 (90 Base) August Active 2 pu ffs as Sulfate HFA MCG/ACT 2018 needed Inhalation every 6 hrs Lisinopril-[place] NDC 41463163975 20-25 MG Orally Act matthew take 1 chlorothiazide Once a day tablet daily Fluoxetine HCl NDC 71694221408 40 MG Orally Active 1 capsule Once a day Meloxicam NDC 01227808040 7.5 MG Orally Jan 04, Active 1 ta blet Once a day PRN 2019 SEvere pain Pennsaid [facility] 64573630940 2 % Transdermal Active 2 p umps to Twice a day affected area Zithromax [facility] 26537159237 500 MG Orally Jan 26Jan Active 1 t ablet Once a day 2019 Acetaminophen ND 23879124165 500 MG Orally Jan 26Feb 25, Active 1 tablet as every 12 hrs 2019 2019 needed Amlodipine [facility] 70710642722 5 MG Orally Active 1 tab let Besylate Once a day Atorvastatin [facility] 85498777352 20 MG Orally Active 1 tablet Calcium Once a day Results No Known Results Summary Purpose eClinicalWorks Submission
--- OUTSIDE RECORDS SUMMARY | 2020-04-06 11:47 | XMS REPORT ---
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
--- OUTSIDE RECORDS SUMMARY | 2020-04-06 11:47 | XMS REPORT | Continuity of Care Document ---
:1960 Author Organization [facility] t Address [address] [place] [address] Care Team Providers Name Role Phone PHYSICIAN Primary Care Physician Unavailable Mavis LIU Attending Clinician Unavailable Светлана Calhoun MD Attending Clinician Aldo Harrison MD Attending Clinician Andrew HENDRICKS Attending Clinician LÁZARO CARRILLO Attending Clinician Unavailable RC Admitting Clinician Unavailable Payers Payer Name Policy Type Policy Effective Date Expiration Date Sour ce Number CIG[employer] O POS [id number] 2017 OPEN ACCESS 00:00:00 ALEKSANDR OPEN [id number] 2017 [place] ACCESS/NETWORKxx 00:00:00 Methodis t [id number] 8-PresentHMO [place] [id number] 2014 2017 00:00:00 00:00:00 Problems Condition Condition Condition Status Onset Resolution Last Treating Co mments Source Name Details Category Date Date Treatment Clinician Date Primary Primary Disease Active Overview: [place] osteoarthr osteoarthr 2-03 Right Me thodi itis of itis of 00:00: index [...] ati ent Clinics HTN, goal HTN, goal Problem Active [facility] 140/90 140/90 [facility] GERD GERD Problem Active [facility] without without [facility] - esophagiti esophagiti Me moria s s l [facility] ent Clinics Primary Primary Problem Active [facility] osteoarthr osteoarthr Emelina kes - itis of itis of [facility] left hand left hand l [facility] ent Clinics Depression Depression Problem Active [facility] with with [facility] - anxiety anxiety [facility] ent Clinics Primary Primary Problem Active [facility] osteoarthr osteoarthr Emelina kes - itis, itis, Memoria right hand right hand l [facility] ent Clinics Alcohol Alcohol Problem Active [facility] abuse abuse [facility] - Memoria [facility] Mixed Mixed Problem Active [facility] hyperlipid hyperlipid Emelina kes - emia emia [facility] ent Clinics Other Other Problem Active [facility] chronic chronic [facility] - pain pain [facility] Primary Primary Problem Active [facility] osteoarthr osteoarthr Emelina kes - itis of itis of [facility] right hip right hip l [facility] ent Clinics Allergies, Adverse Reactions, Alerts This patient has no known allergies or adverse reactions. Social History Social Habit Start Date Stop Date Quantity Comments Source Sex Assigned At [facility] ethodist Tobacco use and 2019-07-01 2019-07-01 Never used [facility] ethodist exposure 00:00:00 00:00:00 Alcohol intake 2019-07-01 2019-07-01 Current drinker Aishwarya on [employer] 00:00:00 00:00:00 of alcohol (finding) Smoking Status Start Date Stop Date Source Never smoker [facility] Medications Ordered Filled Start Stop Current Ordering Indication Dosage Frequency Signature Comments Components Source Medication Medication Date Date Medication? Clinician (SIG) Name Name Acetaminoph Acetaminoph 2020- Yes Monisha [address] [facility] en en 01-26 Cristian as needed [facility] - 00:00: 00:00 Memoria 00 :00 [facility] lisinopril 2019- Yes QD Take by [place] 20 [...] dextroamphe Yes 30mg QD Take 30 mg [place] tamine-amph 2-04 by mouth Meth sherman etamine 10:51: daily. st (AdderalL) 42 30 mg tablet acetaminoph Yes Take by Kristie acosta en (TYLENOL 2 mouth. Method i ARTHRITIS 10:51: st PAIN ORAL) 42 fLUoxetine Yes 10mg QD Take [address] (PROZAC) 10 301 by mouth Luke s - MG capsule 12:00: daily. Medic al 01 Center lisinopril Yes 10mg QD Take [address] (PRINIVIL,Z 3 by mouth Luke s - ESTRIL) 10 12:00: daily. Medic al MG tablet 01 Center amLODIPine Yes 10mg QD Take [address] (NORVASC) 3 by mouth [facility] - 10 MG 12:00: daily. Medical tablet 01 Center Immunizations Ordered Filled Immunization Date Status Comments Sour e Immunization Name Name Afluria single dose Afluria single dose 2019-06-[address] [facility] Vital Signs Vital Name Observation Time Observation Value Comments Source Heart rate 2019-07-01 10:42:00 91 /min Shiva Eduardo Body temperature 2019-07-01 10:42:00 36.89 Nanette Sirisha Eduardo Oxygen saturation in 2019-07-01 10:42:00 97 /min Shiva Eduardo Arterial blood by Pulse oximetry Systolic blood 2019-07-01 10:40:00 124 mm[Hg] Anders n [facility] pressure Diastolic blood 2019-07-01 10:40:00 79 mm[Hg] Aishwarya on [employer] pressure Respiratory rate 2019-07-01 10:40:00 17 /min Sirisha Eduardo Body height 2019-07-01 06:47:00 165.1 cm Shiva Eduardo Body weight 2019-07-01 06:47:00 82.645 kg Shiva Eduardo BMI 2019-07-01 06:47:00 30.32 kg/m2 Shiva Eduardo Procedures Procedure Date / Time Performed Performing Clinician Sourjerson e CO AN ELECTIVE 2019-07-01 07:56:49 Ben Mujica Me [facility] SUPRAGLOTTIC AIRWAY ORIF, FINGER 2019-07-01 07:23:00 Dai Calhoun ECG PRE/POST OP 2019-06-30 15:04:16 Shadi Morales Met jannette BASIC METABOLIC PANEL 2019-06-30 14:16:00 Shadi Morales on [employer] CBC HEMOGRAM 2019-06-30 14:16:00 Shadi Morales Met jannette ESTIMATED GFR 2019-06-30 14:16:00 Shadi Morales Met jannette Plan of Care Planned Activity Planned Date Details Comments Source Future Scheduled 2019-12-27 INFLUENZA VACCINE [place] [facility] Test 00:00:00 [code = INFLUENZA VACCINE] Future Scheduled 2012 BREAST CANCER [place] [facility] Test 00:00:00 SCREENING [code = BREAST CANCER SCREENING] Future Scheduled 2012 COLONOSCOPY SCRE[place]ING [place] [facility] Test 00:00:00 [code = COLONOSCOPY SCREENING] Future Scheduled 2012 SHINGLES VACCINES [place] [facility] Test 00:00:00 (#1) [code = SHINGLES VACCINES (#1)] Future Scheduled 1983-11-22 Screening for [facility] thodist Test 00:00:00 malignant neoplasm of cervix (procedure) [code = 723640874] Encounters Start End Encounter Admission Attending Care Care Encounter Source Date/Time Date/Time Type Type Clinicians Facility Department ID 2020-03-08 2020-03-08 Outpatient MARICEL LIU [facility] [id number] 00:00:00 00:00:00 HORACIO geiger n 2020-01-29 2020-01-29 Outpatient [facility] [id number] [facility] 10:56:00 10:56:00 t [employer] [facility] 2020-01-29 2020-01-29 [facility] [id number] 10:43:00 10:43:00 t [employer] [facility] 2020-01-27 2020-01-27 [facility] [id number] 16:13:00 16:13:00 t [place] [employer] s - Drive [facility] Medicine Outpati ent Clinics 2020-01-27 2020-01-27 [facility] [id number] 10:00:00 10:00:00 t [place] [employer] s - Cryptopay [facility] l Medicine Outpati ent Clinics 2020-01-27 2020-01-27 Out[facility] [id number] 09:29:00 09:29:00 t [place] [employer] s - Drive [facility] l Medicine Outpati ent Clinics 2020-01-05 2020-01-05 Out[facility] [id number] 13:15:00 13:15:00 t [place] [employer] s - Cryptopay [facility] l Medicine Outpati ent Clinics 2019-12-04 2019-12-04 Outpatient [facility] [id number] MD 11:30:35 11:30:35 Dick o n 2019-11-04 2019-11-04 Out[facility] [id number] 11:45:00 11:45:00 t [place] [employer] s - Cryptopay [facility] Medicine Outpati ent Clinics 2019-09-03 2019-09-03 [facility] [id number] 14:30:00 14:30:00 t [employer] s - Cryptopay [facility] Medicine Outpati ent Clinics 2019-07-31 2019-07-31 Out[facility] [id number] 07:58:00 07:58:00 t [place] [employer] [facility] Medicine Outpati ent Clinics 2019-07-28 2019-07-28 Out[facility] [id number] 09:00:00 09:00:00 t [place] [employer] [facility] Medicine Outpati ent Clinics 2019-07-01 2019-07-01 Outpatient [facility] 005 [id number] [place] 00:00:00 00:00:00 DAI Lambert [facility] i st 2019-06-23 2019-06-23 [facility] [id number] 16:32:00 16:32:00 t [employer] s - Drive [facility] 2019-06-12 2019-06-12 [facility] [id number] 08:26:00 08:26:00 t [place] [employer] s - Drive [facility] ent Clinics 2019-06-05 2019-06-05 Out[facility] [id number] 14:30:00 14:30:00 t [place] [employer] s - Drive [facility] 2019-05-06 2019-05-06 [facility] [id number] 16:00:00 16:00:00 t [employer] s - Cryptopay [facility] ent Clinics 2018-09-07 2018-09-07 [facility] [id number] 09:15:00 09:15:00 t [facility] 2018-07-30 2018-07-30 Outpatient MICHAEL VILLANUEVA MDA, MDA [id number] 00:00:00 00:00:00 Dickcon isaacs 2018-07-29 2018-07-29 Outpatient MICHAEL VILLANUEVA MDA, MDA [id number] 00:00:00 00:00:00 Dickcon isaacs 2018-06-13 2018-06-13 [facility] [id number] 10:30:00 10:30:00 t [employer] [facility] 2018-01-16 2018-01-16 Out[facility] [id number] 10:45:00 10:45:00 t [facility] Care [facility] ent Clinics Results Test Description Test Time Test Comments Results Result Comments Source ECG Pre/Post Op 2019-07-01 11:42:34 Test Item Value Reference Range Interpretation Comme nts Ventricular rate (test code = 253) 80 Atrial rate (test code = 255) 80 CO interval (test code = 266) 132 QRSD [...] abnormality no longer evident in Anterior leads- Shiva LopezTelglpmjhEmcltz1041-19-21 07:56:49Ben Mujica 07/01/2019 7:57 AMAirwayDate/Time: 07/01/2019 7:29 AMPerformed by: Nely Mujica.Authorized by: Suraj Harrison MD Location: ORUrgency: ElectiveDifficult Airway: No Resident/EDGE STITCHER/AA: Ben MujicaPreoxygenated with 100% O2: Yes C-spine Precautions Maintained Throughout: Yes Mask Ventilation: Easy maskFinal Airway Type: Supraglottic airwayFinal LMA: I-GelLMA Size: 4Number of Attempts at Approach: 1 atraumaticHouston MethodistBasic metabolic [id number] 17:21:52 Test Item Value Reference Range Interpretation Comments Sodium (test code = 2951-2) 135 135- 148 mEq/L Potassium (test code = 2823-3) 4.6 3.5- 5.0 mEq/L Chloride (test code = 2075-0) 95 98- 112 mEq/L L CO2 (test code = 2027-9) 25 24- 31 mEq/L Anion gap (test code = 06325-3) 15@ANIO 7- 15 mEq/L BUN (test code = 3094-0) 5 mg/dL 6-20 L Creatinine (test code = 2160-0) 0.60 mg/dL 0.5-0.9 Glucose (test code = 2345-7) 129 mg/dL 65-99 H Calcium (test code = 79352-5) 10.4 mg/dL 8.3-10.2 H Lab Interpretation (test code = Abnormal 39006-8) Shiva MethodistEstimated [id number] 17:21:52 Test Item Value Reference Range Interpretation Comments Estimated GFR (test >=90 mL/min/1.73 m2 Cordelia avila Units code = 5488) InterpretationG 1 >=90 Normal or highG2 60-89 Mildly hcnkghyvhH5x 45-59 Mildly to mode rately abquigjdzM8v 30-44 Moderately to severely decreasedG4 15-29 Severely decre asedG5 <15 Kidn ey failureThe eGFR was calculated dee g the Chronic Kidney Disease Epidemiology Co llaboration (CKD-EPI) equat ion. Interpretation is based on recommendations of the National Kidney Foundation-Kidn ey Disease Outcomes Qualit y Initiative (NKF-KDOQI) pub lished in 2014. [facility] [id number] 16:55:50 Test Item Value Reference Range Interpretation Comments WBC (test code = 27799-8) 9.19 4.50- 11.00 k/uL RBC (test code = 56168-0) 5.12 m/uL 4.2-5.5 HGB (test code = 718-7) 15.7 g/dL 12-16 HCT (test code = 4544-3) 47.5 % 37-47 H MCV (test code = 787-2) 92.8 fL 82-100 MCH (test code = 785-6) 30.7 pg 27-34 MCHC (test code = 786-4) 33.1 g/dL 31-37 RDW - SD (test code = 41771-7) 42.1 fL 37-55 MPV (test code = 23903-8) 9.8 fL 8.8-13.2 Platelet count (test code = 373 150- 400 k/uL 41002-6) Nucleated RBC (test code = 0.00 /100 WBC 03134-8) Lab Interpretation (test code = Abnormal 55721-4) [facility]
--- OUTSIDE RECORDS SUMMARY | 2020-04-06 11:47 | XMS REPORT ---
:1960 Author Organization eClinicalWorks Care Team Providers Name Role Phone [facility] Provider Role Unavailable Allergies No Known Allergies [...]
[2020-04-06] MEDS ORDERED: HYDROCODONE/APAP 7.5/325 MG TAB ONE (15:09)
[2020-04-06 16:12] LABS: Absolute Lymphocytes (CBC) 2.4 K/uL (0.7-4.9); Hematocrit 42.8 % (36.0-45.0); Lymphocytes % 22.1 % (15.3-44.8); MPV 7.4 fL (7.6-11.3); RBC Red Blood Cell Count 4.73 M/uL (3.86-4.86)
--- NOTE | 2020-04-06 16:15 | RAD REPORT ---
EXAM DESCRIPTION: RAD - Elbow Left 3 View - 04/06/2020 4:00 pm CLINICAL HISTORY: Left elbow pain status post trauma FINDINGS: 3.3 centimeter avulsion fracture olecranon process No dislocation
[2020-04-06 16:16] LABS: Protime INR 0.92
[2020-04-06 16:24] LABS: BUN Blood Urea Nitrogen 11 mg/dL (7-18); Bicarbonate 26 mmol/L (21-32); Glucose Level 129 mg/dL (74-106); Potassium 3.5 mmol/L (3.5-5.1); Sodium Level 136 mmol/L (136-145)
--- NOTE | 2020-04-06 16:26 | RAD REPORT ---
EXAM DESCRIPTION: RAD - Knee Left 3 View - 04/06/2020 4:00 pm CLINICAL HISTORY: Left knee pain status post injury FINDINGS: No fracture or dislocation is seen.
--- NOTE | 2020-04-06 16:38 | RAD REPORT ---
EXAM DESCRIPTION: RAD - Os Calcis (Calcaneus) Heel - 04/06/2020 4:00 pm CLINICAL HISTORY: Right foot pain FINDINGS: On the lateral view no fracture or dislocation seen. Bony density lies adjacent to the anteromedial aspect of the calcaneus on the axial view. This has an unusual appearance and may be secondary to positioning resulting in confluence of normal structures. A fracture is another consideration but probably less likely. If the patient has pain in this region then further evaluation with CT could obtained
--- NOTE | 2020-04-06 17:19 | RAD REPORT ---
EXAM DESCRIPTION: CT - Chest Abdomen Pelvis W Cont - 04/06/2020 4:56 pm CLINICAL HISTORY: Chest and abdominal pain status post fall COMPARISON: October 2019 CT abdomen TECHNIQUE: Computed axial tomography of the chest, abdomen and pelvis was obtained. 100 cc Isovue-30 0 was administered intravenously. Oral contrast was not requested. This limits evaluation of bowel. All CT scans are performed using dose optimization technique as appropriate and may include automated exposure control or mA/KV adjustment according to patient size. FINDINGS: A pleural effusion is not present. A pulmonary contusion is not seen. A mediastinal hematoma is not present. A small amount of fluid lies adjacent to the posterolateral aspect of a right breast implant. It is u nchanged from the prior exam. It may indicate a rupture. If clinically indicated further evaluation w ith nonemergent MRI could be obtained The liver, spleen, pancreas, adrenals, kidneys and bladder do not demonstrate a traumatic injury Fatty liver Small amount of free fluid within the pelvis Small periumbilical hernia contains fat IMPRESSION: No acute traumatic injury involving the chest/abdomen nor pelvis seen
--- NOTE | 2020-04-06 17:37 | RAD REPORT ---
EXAM DESCRIPTION: Ribs Right - 04/06/2020 4:00 pm CLINICAL HISTORY: Right rib pain FINDINGS: No fracture is seen
--- NOTE | 2020-04-06 18:09 | EDPHYS ---
Physician Documentation [facility] Name: Patience Montejo Age: 59 yrs Sex: Female : 1960 Arrival Date: 04/06/2020 Time: 11:31 Bed 18 Private MD: Gucci Moura ED Physician Lv Siddiqi HPI: 04/06 14:45 This 59 yrs old Female presents to ER via Ambulatory with complaints of Elbow cp Pain, Pain Under Breast. 14:45 Trauma demographics: County: The injury occurred in [place] Location of Injury: The cp injury occurred outdoors. 14:45 Mechanism of injury: Fall: the patient fell motorized cart. cp 14:45 Associated injuries: The patient sustained injury to the chest, specifically the right cp side rib pain, pain with breathing, pain with movement, left elbow, decreased range of motion, ecchymosis, painful injury, swelling. Onset: The symptoms/episode began/occurred 4 day(s) ago. Historical: - Allergies: 12:10 No Known Allergies; ca1 - Home Meds: 12:10 lisinopril-hydrochlorothiazide 20-25 mg oral tab 1 tab once daily [Active]; amlodipine ca1 5 mg tab 1 tab once daily [Active]; fluoxetine 40 mg Oral cap 1 cap once daily [Active]; atorvastatin 20 mg oral tab 1 tab once daily [Active]; omeprazole 40 mg Oral cpDR 1 cap once daily [Active]; meloxicam 15 mg oral tab 1 tab once daily [Active]; - PMHx: 12:10 High Cholesterol; Hypertension; ca1 - PSHx: 12:10 ; ca1 - Immunization history:: Adult Immunizations up to date, Flu vaccine is not up to date. - Social history:: Smoking status: Patient denies any tobacco usage or history of. ROS: 14:50 Constitutional: Negative for body aches, chills, fever, poor PO intake. cp 14:50 Neck: Negative for pain with movement, pain at rest, stiffness, tenderness, bony cp tenderness. 14:50 Cardiovascular: Positive for chest pain, of the right lateral rib area below breast, Negative for palpitations. 14:50 Respiratory: Negative for cough, shortness of breath, wheezing. 14:50 Abdomen/GI: Positive for abdominal pain, of the right upper quadrant, Negative for vomiting, diarrhea, constipation. 14:50 Back: Negative for pain at rest, pain with movement. 14:50 MS/extremity: Positive for pain, swelling, tenderness, of the left elbow, pain to left knee and pain to heel of right foot. 14:50 Skin: Positive for abrasion(s), of the left knee. 14:50 Neuro: Negative for altered mental status, headache, numbness, weakness. 14:50 All other systems are negative. Exam: 15:00 Head/Face: Normocephalic, atraumatic. cp 15:00 Constitutional: The patient appears in no acute distress, alert, awake, well developed, well nourished, uncomfortable. 15:00 Eyes: Periorbital structures: appear normal, Pupils: equal, round, and reactive to cp light and accomodation, Extraocular movements: intact throughout, Conjunctiva: normal, no exudate, no injection, Lids and lashes: appear normal, bilaterally. 15:00 ENT: External ear(s): are unremarkable, Nose: is normal, Mouth: Lips: moist, Posterior pharynx: Airway: no evidence of obstruction, patent. 15:00 Neck: C-spine: vertebral tenderness, is not appreciated, crepitus, is not appreciated. 15:00 Chest/axilla: Inspection: normal, Palpation: crepitus, is not appreciated, tenderness, cp that is moderate, of the right lateral rib area and area below right breast. 15:00 Cardiovascular: Rate: normal, Rhythm: regular, Edema: is not appreciated, JVD: is not appreciated. 15:00 Respiratory: the patient does not display signs of respiratory distress, Respirations: cp normal, no use of accessory muscles, no retractions, labored breathing, is not present, Breath sounds: are clear throughout, no decreased breath sounds. 15:00 Abdomen/GI: Inspection: abdomen appears normal, Bowel sounds: active, all quadrants, Palpation: soft, in all quadrants, mild abdominal tenderness, in the right upper quadrant, rebound tenderness, is not appreciated, involuntary guarding, is not appreciated. 15:00 Back: pain, is absent, ROM is normal, vertebral tenderness, is not appreciated. 15:00 Musculoskeletal/extremity: Extremities: grossly normal except: noted in the left elbow: decreased ROM, ecchymosis, pain, swelling, tenderness, noted in the left knee: abrasion, tenderness, noted in the right heel: pain, tenderness. 15:00 Neuro: Orientation: to person, place \T\ time. Mentation: is normal, Motor: moves all fours, strength is normal, Sensation: is normal. Vital Signs: 12:05 BP 144 / 93; Pulse 102; Resp 16 S; Temp 97.5(TE); Pulse Ox 98% on R/A; Weight 90.72 kg ca1 (R); Height 5 ft. 5 in. (165.10 cm) (R); Pain 2/10; 14:25 BP 148 / 96 RA Supine (/reg); Pulse 102; Resp 18; Pulse Ox 100% on R/A; Pain 3/10; jp3 15:38 BP 146 / 104; Pulse 103; Resp 16; Pulse Ox 100% on R/A; ll2 16:59 BP 123 / 70; Pulse 100; Resp 16; Pulse Ox 100% on R/A; mh5 18:30 BP 120 / 75; Pulse 99; Resp 15; Pulse Ox 100% ; ll2 12:05 Body Mass Index 33.28 (90.72 kg, 165.10 cm) ca1 Procedures: 18:40 Splinting: Splint applied to left elbow using sling, orthoglass long arm posterior. cp applied by nurse. Examined by me, post splint application: neurovascular intact, Patient tolerated well. MDM: 14:17 Patient medically screened. [facility] 15:00 Differential diagnosis: intra-abdominal injury, closed head injury, extremity fracture. cp 18:07 Data reviewed: vital signs, nurses notes, lab test result(s), radiologic studies, CT cp scan, plain films. 18:07 Counseling: I had a detailed discussion with the patient and/or guardian regarding: the cp historical points, exam findings, and any diagnostic results supporting the discharge/admit diagnosis, lab results, radiology results, the need for outpatient follow up, a orthopedic surgeon, to return to the emergency department if symptoms worsen or persist or if there are any questions or concerns that arise at home. 18:07 Response to treatment: the patient's symptoms have markedly improved after treatment, cp and as a result, I will discharge patient. 04/06 15:45 Order name: Basic Metabolic Panel; Complete Time: 16:34 cp 04/06 15:45 Order name: CBC with Diff; Complete Time: 16:34 cp 04/06 14:38 Order name: XRAY Elbow LEFT 3 view; Complete Time: 16:34 cp 04/06 15:45 Order name: Type And Screen; Complete Time: 17:45 cp 04/06 15:45 Order name: PT-INR; Complete Time: 16:34 cp 04/06 15:45 Order name: Ptt, Activated; Complete Time: 16:34 cp 04/06 14:38 Order name: XRAY Ribs RIGHT; Complete Time: 17:45 cp 04/06 17:45 Interpretation: Report reviewed. cp 04/06 14:38 Order name: XRAY Knee LEFT 3 view; Complete Time: 16:34 cp 04/06 14:38 Order name: XRAY Heel Os Calcis (calcaneus); Complete Time: 17:45 cp 04/06 17:46 Interpretation: Report reviewed. 04/06 15:45 Order name: CT Chest, Abdomen, Pelvis - W/Contrast: right lateral rib pain, ruq pain; cp Complete Time: 17:45 04/06 17:47 Interpretation: Report reviewed. 04/06 15:45 Order name: Labs collected and sent; Complete Time: 16:10 cp 04/06 17:48 Order name: Walking boot; Complete Time: 18:39 cp 04/06 17:48 Order name: Sling; Complete Time: 18:39 cp 04/06 17:48 Order name: Splint - Elbow - Posterior: long arm on left; Complete Time: 18:39 cp Administered Medications: 15:35 Drug: Hydrocodone-Acetaminophen (7.5 mg-325 mg) 1 tabs Route: PO; ll2 16:09 Follow up: Response: No adverse reaction; Pain is unchanged, physician notified ll2 16:09 Drug: fentaNYL (PF) 25 mcg Route: IVP; Site: right forearm; ll2 17:35 Follow up: Response: No adverse reaction; Pain is decreased ll2 16:09 Drug: NS 0.9% 500 ml Route: IV; Rate: bolus; Site: right forearm; ll2 17:32 Follow up: Response: No adverse reaction; IV Status: Completed infusion; IV Intake: ll2 500ml 18:18 Drug: fentaNYL (PF) 25 mcg Route: IVP; Site: right forearm; ll2 18:39 Follow up: Response: No adverse reaction; Pain is decreased; RASS: Alert and Calm (0) ll2 Disposition: 18:30 Chart complete. cp 04/07 06:57 Co-signature as Attending Physician, Lv Siddiqi MD I agree with the assessment and [facility] plan of care. Disposition: 04/06/20 18:08 Discharged to Home. Impression: Displaced fracture of olecranon process with intraarticular extension of left ulna, Pain in right foot - right heel, Pain in left knee, Other chest pain - right lateral rib area. - Condition is Stable. - Discharge Instructions: Elastic Bandage and RICE, Elbow Fracture Treated With ORIF, Knee Pain, Foot Pain. - Prescriptions for Naprosyn 500 mg Oral Tablet - take 1 tablet by ORAL route 2 times per day take with food; 20 tablet. Tylenol- Codeine #3 300-30 mg Oral Tablet - take 2 tablets by ORAL route every 8 hours As needed; 20 tablet. - Medication Reconciliation Form, Thank You Letter, Antibiotic Education, Prescription Opioid Use form. - Follow up: Henrik Vargas MD; When: 2 - 3 days; Reason: Recheck today's complaints. - Problem is new. - Symptoms have improved. Signatures: Dispatcher [employer] EDLv Rice MD MD cha Page, Corey, PA PA cp Meggan Arambula RN GEORGINA ca1 Dotty De La Torre RN RN ll2 Corrections: (The following items were deleted from the chart) 04/06 18:45 18:08 04/06/2020 18:08 Discharged to Home. Impression: Displaced fracture of olecranon ll2 process with intraarticular extension of left ulna; Pain in right foot - right heel; Pain in left knee; Other chest pain - right lateral rib area. Condition is Stable. Forms are Medication Reconciliation Form, Thank You Letter, Antibiotic Education, Prescription Opioid Use. Follow up: Dr. Henrik Vargas; When: 2 - 3 days; Reason: Recheck today's complaints. Problem is new. Symptoms have improved. cp
--- NOTE | 2020-04-06 18:09 | ER ---
Nurse's Notes [facility] Name: Patience Montejo Age: 59 yrs Sex: Female : 1960 Arrival Date: 04/06/2020 Time: 11:31 Bed 18 Private MD: Gucci Moura Diagnosis: Displaced fracture of olecranon process with intraarticular extension of left ulna;Pain in right foot-right heel;Pain in left knee;Other chest pain-right lateral rib area Presentation: 04/06 12:05 Chief complaint: Patient states: Late Sunday night, I fell off something. On Sunday, ca1 had pain, swelling and limited ROM on L elbow. Pain on L knee, Pain on sole of L foot. And Pain on Rib cage under the R breast which has been significantly worse in the past few days and worse when I take a breath and cough. Coronavirus screen: Client denies travel out of the [place] in the last 14 days. At this time, the client does not indicate any symptoms associated with coronavirus-19. Ebola Screen: Patient negative for fever greater than or equal to 101.5 degrees Fahrenheit, and additional compatible Ebola Virus Disease symptoms Patient denies exposure to infectious person. Patient denies travel to an Ebola-affected area in the 21 days before illness onset. No symptoms or risks identified at this time. Initial Sepsis Screen: Does the patient meet any 2 criteria? No. Patient's initial sepsis screen is negative. Does the patient have a suspected source of infection? No. Patient's initial sepsis screen is negative. Risk Assessment: Do you want to hurt yourself or someone else? Patient reports no desire to harm self or others. Onset of symptoms was April 06, 2020. 12:05 Method Of Arrival: Ambulatory ca1 12:05 Acuity: PEDRO 3 ca1 Historical: - Allergies: 12:10 No Known Allergies; ca1 - Home Meds: 12:10 lisinopril-hydrochlorothiazide 20-25 mg oral tab 1 tab once daily [Active]; amlodipine ca1 5 mg tab 1 tab once daily [Active]; fluoxetine 40 mg Oral cap 1 cap once daily [Active]; atorvastatin 20 mg oral tab 1 tab once daily [Active]; omeprazole 40 mg Oral cpDR 1 cap once daily [Active]; meloxicam 15 mg oral tab 1 tab once daily [Active]; - PMHx: 12:10 High Cholesterol; Hypertension; ca1 - PSHx: 12:10 ; ca1 - Immunization history:: Adult Immunizations up to date, Flu vaccine is not up to date. - Social history:: Smoking status: Patient denies any tobacco usage or history of. Screenin:38 Abuse screen: Denies threats or abuse. Nutritional screening: No deficits noted. ll2 Tuberculosis screening: No symptoms or risk factors identified. Fall Risk None identified. Assessment: 15:35 General: Appears in no apparent distress. Behavior is calm, cooperative, appropriate ll2 for age. Pain: Complains of pain in left elbow Pain currently is 5 out of 10 on a pain scale. Neuro: Level of Consciousness is awake, alert, obeys commands. Cardiovascular: Patient's skin is warm and dry. Respiratory: Airway is patent Respiratory effort is even, unlabored, Respiratory pattern is regular, symmetrical. GI: No signs and/or symptoms were reported involving the gastrointestinal system. : No signs and/or symptoms were reported regarding the genitourinary system. EENT: No signs and/or symptoms were reported regarding the EENT system. Derm: Skin is intact, Skin is pink, warm \T\ dry. Musculoskeletal: Circulation, motion, and sensation intact. Range of motion: limited in left elbow. 16:30 Reassessment: pt states her pain has decreased and is more bearable after the pain med. ll2 16:45 Reassessment: Patient and/or family updated on plan of care and expected duration. Pain ll2 level reassessed. Patient is alert, oriented x 3, equal unlabored respirations, skin warm/dry/pink. 17:30 Reassessment: Patient and/or family updated on plan of care and expected duration. Pain ll2 level reassessed. Patient is alert, oriented x 3, equal unlabored respirations, skin warm/dry/pink. pt requested more pain meds due to increase in pain, ERP discretion to wait at this time. Pt updated and verbalizes understanding. 18:18 Reassessment: VO for 25 mcg Fentanyl IVP with splint. Medicated as ordered. ll2 Vital Signs: 12:05 BP 144 / 93; Pulse 102; Resp 16 S; Temp 97.5(TE); Pulse Ox 98% on R/A; Weight 90.72 kg ca1 (R); Height 5 ft. 5 in. (165.10 cm) (R); Pain 2/10; 14:25 BP 148 / 96 RA Supine (/reg); Pulse 102; Resp 18; Pulse Ox 100% on R/A; Pain 3/10; jp3 15:38 BP 146 / 104; Pulse 103; Resp 16; Pulse Ox 100% on R/A; ll2 16:59 BP 123 / 70; Pulse 100; Resp 16; Pulse Ox 100% on R/A; mh5 18:30 BP 120 / 75; Pulse 99; Resp 15; Pulse Ox 100% ; ll2 12:05 Body Mass Index 33.28 (90.72 kg, 165.10 cm) ca1 ED Course: 11:31 Patient arrived in ED. ag5 11:32 Gucci Moura DO is Private Physician. ag5 12:09 Triage completed. ca1 12:10 Arm band placed on right wrist. ca1 14:16 Lv Pinto PA is PHCP. cp 14:16 Lv Siddiqi MD is Attending Physician. cp 14:26 Bed in low position. Call light in reach. Warm blanket given. Verbal reassurance given. jp3 Pulse ox on. NIBP on. 14:26 Patient maintains SpO2 saturation greater than 95% on room air. jp3 14:50 Dotty De La Torre, GEORGINA is Primary Nurse. ll2 16:00 XRAY Elbow LEFT 3 view In Process Unspecified. EDMS 16:00 XRAY Ribs RIGHT In Process Unspecified. EDMS 16:00 XRAY Knee LEFT 3 view In Process Unspecified. EDMS 16:01 XRAY Heel Os Calcis (calcaneus) In Process Unspecified. EDMS 16:04 Initial lab(s) drawn, by tn, sent to lab. Inserted saline lock: 20 gauge in right jl7 forearm, using aseptic technique. Blood collected. 16:57 CT Chest, Abdomen, Pelvis - W/Contrast: right lateral rib pain, ruq pain In Process EDMS Unspecified. 18:04 Henrik Vargas MD is Referral Physician. cp 18:40 No provider procedures requiring assistance completed. IV discontinued, intact, ll2 bleeding controlled, No redness/swelling at site. Pressure dressing applied. Administered Medications: 15:35 Drug: Hydrocodone-Acetaminophen (7.5 mg-325 mg) 1 tabs Route: PO; ll2 16:09 Follow up: Response: No adverse reaction; Pain is unchanged, physician notified ll2 16:09 Drug: fentaNYL (PF) 25 mcg Route: IVP; Site: right forearm; ll2 17:35 Follow up: Response: No adverse reaction; Pain is decreased ll2 16:09 Drug: NS 0.9% 500 ml Route: IV; Rate: bolus; Site: right forearm; ll2 17:32 Follow up: Response: No adverse reaction; IV Status: Completed infusion; IV Intake: ll2 500ml 18:18 Drug: fentaNYL (PF) 25 mcg Route: IVP; Site: right forearm; ll2 18:39 Follow up: Response: No adverse reaction; Pain is decreased; RASS: Alert and Calm (0) ll2 Intake: 17:32 IV: 500ml; Total: 500ml. ll2 Outcome: 18:08 Discharge ordered by MD. cp 18:35 Condition: stable ll2 18:35 Discharge instructions given to patient, Instructed on discharge instructions, follow up and referral plans. medication usage, Demonstrated understanding of instructions, follow-up care, medications, Prescriptions given X 2. 18:40 Discharged to home via wheelchair, with family. ll2 18:45 Patient left the ED. ll2 Signatures: Dispatcher [employer] EDMS Lv Pinto PA PA cp Martinez, Maria 5 Chris Cuellar RN RN jl7 Get Ragland jp3 Meggan Arambula RN RN ca1 Antonia Mckeon 5 Dotty De La Torre RN RN ll2 Corrections: (The following items were deleted from the chart) 12:11 12:05 Chief complaint: Patient states: Late Raf night, I fell off something. On ca1 Sunday, had pain, swelling and limited ROM on L elbow. Pain on L knee, Pain on sole of L foot. And Pain on Rib cage which has been significantly worse in the past few days and worse when I take a breath and cough. ca1 18:40 18:09 Reassessment: Patient and/or family updated on plan of care and expected ll2 duration. Pain level reassessed. Patient is alert, oriented x 3, equal unlabored respirations, skin warm/dry/pink. pt requested more pain meds due to increase in pain, ERP discretion to wait at this time. ll2 18:41 18:09 Reassessment: Patient and/or family updated on plan of care and expected ll2 duration. Pain level reassessed. Patient is alert, oriented x 3, equal unlabored respirations, skin warm/dry/pink. pt requested more pain meds due to increase in pain, ERP discretion to wait at this time. ll2 18:45 18:35 Discharged to home via wheelchair, with family, ll2 ll2
[2020-04-06] MEDS ORDERED: FENTANYL CITR 100 MCG/2 ML ONE (19:34)
[2020-04-06 21:03] VITALS: TEMP 97.5
[2020-04-06 21:05] VITALS: O2SAT 100
[2020-04-06 21:10] VITALS: BP 120/75
== END 2020-04-06 18:45 | disposition home or self-care (01) ==
LOC: ER 11:26
PROC: 2W39X1Z Immobilization of Left Upper Extremity using Splint (ICD-10-PCS; principal; 2020-04-06)
DX: S52.032A Displaced fracture of olecranon process with intraarticular extension of left ulna, initial encounter for closed fracture (principal); R07.81 Pleurodynia; M79.671 Pain in right foot; M25.562 Pain in left knee; R07.89 Other chest pain; W17.89XA Other fall from one level to another, initial encounter; Y93.9 Activity, unspecified; Y92.89 Other specified places as the place of occurrence of the external cause; I10 Essential (primary) hypertension; E78.00 Pure hypercholesterolemia, unspecified
CPT/HCPCS: 85025; 80048; 36415; 86900; 86850; 85610; 86901; 85730; 71260; 74177; 73650; 73080; 71100; 73562; 29105; Q9967; J3010; 96361; 96374; 99284

== ENCOUNTER 2020-04-14 08:09 | Day surgery (SDC) | payer OTHER ==
--- NOTE | 2020-04-11 07:45 | EKG ---
Test Date: 2020-04-09 Test Time: 13:20:45 Medical Equipment Technician: TG MEASUREMENT RESULTS: Intervals: Rate: 82 NM: 158 QRSD: 72 QT: 388 QTc: 453 [place]: P: 67 NM: 158 QRS: -9 T: 31 INTERPRETIVE STATEMENTS: Normal sinus rhythm Possible Anterior infarct, age undetermined Abnormal ECG No previous ECG available for comparison Electronically Signed On 04-11-20 07:41:15 [employer] by Ramone Alexandra
--- OUTSIDE RECORDS SUMMARY | 2020-04-14 08:12 | XMS REPORT | Clinical Summary ---
:1960 Author Organization [facility] Address [address] [place] [address] Care Team Providers Name Role Phone Unavailable [...] Not on file Results Not on fileafter 04/14/2019
--- OUTSIDE RECORDS SUMMARY | 2020-04-14 08:12 | XMS REPORT | Clinical Summary ---
:1960 Author Organization [facility] Address [address] [place] [address] Care Team Providers Name Role Phone Sukumar [...] Appointment Testing MD Светлана (Primary Dx) after 04/14/2019 Surgical History Surgery Date Site/Laterality Comments REDUCTION MAMMAPLASTY AUGMENTATION, BREAST, WITH PROSTHETIC IMPLANT ORIF, FINGER 07/01/2019 Hand/Right Procedure: ARTHR ODESIS RIGHT INDEX FINGER DIP JOINT WITH INTERNAL FIXATIO N.; Surgeon: Marilin Calhoun MD; Location: [facility] OP C 19 OR; Service: Hand; [...] Comments Blood Pressure 124/79 07/01/2019 10:40 AM BUTTER LIQUEFIER Pulse 91 07/01/2019 10:42 AM BUTTER LIQUEFIER Temperature 36.9 C (98.4 F) 07/01/2019 10:42 AM BUTTER LIQUEFIER Respiratory Rate 17 07/01/2019 10:40 AM BUTTER LIQUEFIER Oxygen Saturation 97% 07/01/2019 10:42 AM BUTTER LIQUEFIER Inhaled Oxygen Concentration - - Weight 82.6 kg (182 lb 3.2 oz) 07/01/2019 6:47 AM BUTTER LIQUEFIER Height 165.1 cm (5' 5") 07/01/2019 6:47 AM BUTTER LIQUEFIER Body Mass Index 30.32 07/01/2019 6:47 AM BUTTER LIQUEFIER Plan of Treatment Health Maintenance Due Date Last Done Comments CERVICAL CANCER SCREENING 11/22/1983 BREAST CANCER SCREENING 2012 COLONOSCOPY SCREENING 2012 SHINGLES VACCINES (#1) 2012 INFLUENZA VACCINE 12/27/2019 Implants Implanted Type Area 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 ORIF, FINGER 07/01/2019 7:23 Primary AM BUTTER LIQUEFIER osteoarthritis, right hand Case Notes EST 1HR, MINI C-ARM, TRUMPF TABLE, ACCUMED SCREW Special Needs EST 1HR, MINI C-ARM, TRUMPF TABLE, ACCUMED SCREW ECG PRE/POST OP Routine 06/30/2019 3:04 PM Preop testing Resu lts for this BUTTER LIQUEFIER procedure are i n the results section . ESTIMATED GFR Routine 06/30/2019 2:16 PM Results for this BUTTER LIQUEFIER procedure are i n the results section . CBC HEMOGRAM Routine 06/30/2019 2:16 PM Preop testing Results for this BUTTER LIQUEFIER procedure are i n the results section . BASIC METABOLIC PANEL Routine 06/30/2019 2:16 PM Preop testin g Results for this BUTTER LIQUEFIER procedure are i n the results section . after 04/14/2019 Results Airway (07/01/2019 7:56 AM BUTTER LIQUEFIER) Narrative Performed At [facility] 07/01/2019 7:57 AM Airway Date/Time: 07/01/2019 7:29 AM Performed by: Ben Mujica Authorized by: Suraj Harrison MD Location: OR Urgency: Elective Difficult Airway: No Resident/CLINICAL CODER/AA: Ben Mujica Preoxygenated with 100% O2: Yes C-spine Precautions Maintained Throughou t: Yes Mask Ventilation: Easy mask Final Airway Type: Supraglottic airway Final LMA: I-Gel LMA Size: 4 Number of Attempts at Approach: 1 atraumatic ECG Pre/Post Op (06/30/2019 3:04 PM BUTTER LIQUEFIER) Pathologist Sig nature Ventricular rate 80 [facility] MUSE Atrial rate 80 [facility] MUSE [place] interval 132 [facility] M[facility] QRSD interval 74 [...] Organization Address City/State/ZIP Code Phon e Number [facility] MUSE [address] [place] [address] Estimated GFR (06/30/2019 2:16 PM BUTTER LIQUEFIER) Estimated GFR >=90 mL/min/1.73 [facility] [employer]ESTANT Comment: HOSPITAL Catergory Units Interpretation G1 >=90 [...] 2014. Specimen Plasma specimen Performing Organization Address [facility] Phon e Number [facility] DEPARTMENT OF PATHOLOGY AND [address] [place] [address] [phone] [address] CBC hemogram (06/30/2019 2:16 PM BUTTER LIQUEFIER) Pathologist Sig [facility] WBC 9.19 4.50 - 11.00 k/uL [facility] RBC 5.12 4.20 - 5.50 m/uL [facility] HGB 15.7 12.0 - 16.0 g/dL [facility] HCT 47.5 (H) 37.0 - 47.0 % [facility] MCV 92.8 82.0 - 100.0 fL [facility] MCH 30.7 27.0 - 34.0 pg [facility] MCHC 33.1 31.0 - 37.0 g/dL [facility] RDW - SD 42.1 37.0 - 55.0 fL [facility] MPV 9.8 8.8 - 13.2 fL [facility] Platelet count 373 150 - 400 k/uL [facility] Nucleated RBC 0.00 /100 WBC [facility] Specimen Blood Performing Organization Address City/[facility] Phon e Number [facility] DEPARTMENT OF PATHOLOGY AND [address] [place] [address] [phone] [address] Basic metabolic panel (06/30/2019 2:16 PM BUTTER LIQUEFIER) [facility] Sodium 135 135 - 148 mEq/L [facility] Potassium 4.6 3.5 - 5.0 mEq/L [facility] Chloride 95 (L) 98 - 112 mEq/L [facility] CO2 25 24 - 31 mEq/L [facility] Anion gap 15@ANIO 7 - 15 mEq/L [facility] BUN 5 (L) 6 - 20 mg/dL [facility] Creatinine 0.60 0.50 - 0.90 mg/dL [facility] Glucose 129 (H) 65 - 99 mg/dL [facility] Calcium 10.4 (H) 8.3 - 10.2 mg/dL [facility] Specimen Plasma specimen Performing Organization Address City/State/ZIP Code Phon e Number [facility] DEPARTMENT OF PATHOLOGY AND [address] [place], [place] [phone] GENOMIC MEDICINE [facility] [address] [place] [address] after 04/14/2019 (Home) [place], [place] [phone] (Work) Advance Directives For more information, please contact: [phone] Type Date Recorded Patient Library Serials Assistant Explanati on Advance Directives, Living Will and Medical Power of Animal Shelter Clerk
--- OUTSIDE RECORDS SUMMARY | 2020-04-14 08:13 | XMS REPORT ---
[...] Status Dosage System Date Date Omeprazole NDC 12653576981 40 MG Orally Active 1 ca psule Once a day Albuterol ND 24796721766 108 (90 Base) August Active 2 pu ffs as Sulfate HFA MCG/ACT 2018 needed Inhalation every 6 hrs Lisinopril-[place] NDC 93517255730 20-25 MG Orally Act matthew take 1 chlorothiazide Once a day tablet daily Fluoxetine HCl NDC 53114567076 40 MG Orally Active 1 capsule Once a day Meloxicam NDC 82940438183 7.5 MG Orally Jan 04, Active 1 ta blet Once a day PRN 2019 SEvere pain Pennsaid [facility] 04142771880 2 % Transdermal Active 2 p umps to Twice a day affected area Zithromax [facility] 19838678744 500 MG Orally Jan 26Jan Active 1 t ablet Once a day 2019 Acetaminophen ND 30173150311 500 MG Orally Jan 26Feb 25, Active 1 tablet as every 12 hrs 2019 2019 needed Amlodipine [facility] 87738380112 5 MG Orally Active 1 tab let Besylate Once a day Atorvastatin [facility] 81215500203 20 MG Orally Active 1 tablet Calcium Once a day Results No Known Results Summary Purpose eClinicalWorks Submission
--- OUTSIDE RECORDS SUMMARY | 2020-04-14 08:13 | XMS REPORT ---
:1960 Author Organization eClinicalWorks Care Team Providers Name Role Phone Moura [facility] Provider Role Unavailable Allergies No [...]
--- OUTSIDE RECORDS SUMMARY | 2020-04-14 08:13 | XMS REPORT | Continuity of Care Document ---
:1960 Author Organization [facility] t Address [address] [place] [address] Care Team Providers Name Role Phone PHYSICIAN Primary Care Physician Unavailable Mavis LIU Attending Clinician Unavailable Светлана Calhoun MD Attending Clinician Aldo Harrison MD Attending Clinician Andrew HENDRICKS Attending Clinician LÁZARO CARRILLO Attending Clinician Unavailable RC Admitting Clinician Unavailable Payers Payer Name Policy Type Policy Effective Date Expiration Date Sour ce Number CIGNA O POS [id number] 2017 OPEN ACCESS 00:00:00 ALEKSANDR OPEN [id number] 2017 [place] ACCESS/NETWORKxx 00:00:00 Methodis t [id number] 8-PresentO [place] [id number] 2014 2017 00:00:00 00:00:00 Problems Condition Condition Condition Status Onset Resolution Last Treating Co mments Source Name Details Category Date Date Treatment Clinician Date Primary Primary Disease Active Overview: [place] osteoarthr osteoarthr 2-03 Right Me thodi itis of itis of 00:00: index st right hand right hand 00 finger dip joint Allergies, Adverse Reactions, Alerts This patient has no known allergies or adverse reactions. Social History Social Habit Start Date Stop Date Quantity Comments Source Sex Assigned At [facility] ethodist Tobacco use and 2019-07-01 2019-07-01 Never used [facility] ethodist exposure 00:00:00 00:00:00 Alcohol intake 2019-07-01 2019-07-01 Current drinker Aishwarya on [facility] 00:00:00 00:00:00 of alcohol (finding) Smoking Status Start Date Stop Date Source Never smoker [place] Jessicais t Medications Ordered Filled Start Stop Current Ordering Indication Dosage Frequency Signature Comments Components Source Medication Medication Date Date Medication? Clinician (SIG) Name Name Acetaminoph Acetaminoph 2020- Yes Monisha [address] [facility] 01-26 Cristian as needed [facility] :00 [facility] Clinics lisinopril 0 Yes QD Take by [place] 20 mg 2-04 mouth Methodi tablet 1 10:51: daily. st tablet, 42 hydroCHLORO thiazide 25 MG tablet 0.5 tablet FLUoxetine Yes 40mg QD Take 40 mg [place] (PROzac) 40 2-04 by mouth Meth sherman MG capsule 10:51: daily. st 42 amLODIPine 2019-0 Yes 5mg QD Take 5 mg [place] (NORVASC) 5 2-04 by mouth Meth sherman mg tablet 10:51: daily. st 42 dextroamphe 2019-0 Yes 30mg QD Take 30 mg Shannon tamine-amph 2-04 by mouth Meth sherman etamine 10:51: daily. st (AdderalL) 42 30 mg tablet acetaminoph Yes Take by Kristie dave en (TYLENOL 2-04 mouth. Method i ARTHRITIS 10:51: st PAIN ORAL) 42 fLUoxetine Yes 10mg QD Take [address] (PROZAC) 10 07-26 by mouth [facility] - MG capsule 12:00: daily. Medic al Center lisinopril Yes 10mg QD Take [address] (PRINIVIL,Z 07-26 by mouth Luke s - ESTRIL) 10 12:00: daily. Medic al MG tablet Center amLODIPine Yes 10mg QD Take [address] (NORVASC) 07-26 by mouth [facility] - 10 MG 12:00: daily. Medical tablet Center Immunizations Ordered Filled Immunization Date Status Comments Sour e Immunization Name Name Afluria single dose Afluria single dose 2019-06-[address] [facility] Vital Signs Vital Name Observation Time Observation Value Comments Source Heart rate 2019-07-01 10:42:00 91 /min Shiva Eduardo Body temperature 2019-07-01 10:42:00 36.89 Nanette [place] [facility] Oxygen saturation in 2019-07-01 10:42:00 97 /min Shiva Eduardo Arterial blood by Pulse oximetry Systolic blood 2019-07-01 10:40:00 124 mm[Hg] Sirishato n Confucianism pressure Diastolic blood 2019-07-01 10:40:00 79 mm[Hg] Sirishat on [facility]ucianism pressure Respiratory rate 2019-07-01 10:40:00 17 /min [place] [facility] Body height 2019-07-01 06:47:00 165.1 cm Shiva Eduardo Body weight 2019-07-01 06:47:00 82.645 kg Shiva Eduardo BMI 2019-07-01 06:47:00 30.32 kg/m2 Shiva Eduardo Procedures Procedure Date / Time Performed Performing Clinician [facility] e CO AN ELECTIVE 2019-07-01 07:56:49 Ben Mujica thodist SUPRAGLOTTIC AIRWAY ORIF, FINGER 2019-07-01 07:23:00 Dai Calhoun ECG PRE/POST OP 2019-06-30 15:04:16 Shadi Morales Met jannette BASIC METABOLIC PANEL 2019-06-30 14:16:00 Shadi Morales CBC HEMOGRAM 2019-06-30 14:16:00 Shadi Morales Met jannette ESTIMATED GFR 2019-06-30 14:16:00 Shadi Morales Met jannette Plan of Care Planned Activity Planned Date Details Comments Source Future Scheduled 2019-12-27 INFLUENZA VACCINE Sirishato n [facility] Test 00:00:00 [code = INFLUENZA VACCINE] Future Scheduled 2012 BREAST CANCER Shiva Me [facility]odist Test 00:00:00 SCREENING [code = BREAST CANCER SCREENING] Future Scheduled 2012 COLONOSCOPY SCREENING daja [facility] Test 00:00:00 [code = COLONOSCOPY SCREENING] Future Scheduled 2012 SHINGLES VACCINES [place] [facility] Test 00:00:00 (#1) [code = SHINGLES VACCINES (#1)] Future Scheduled 1981-11-22 Screening for Shannon Me thodist Test 00:00:00 malignant neoplasm of cervix (procedure) [code = 158145454] Encounters Start End Encounter Admission Attending Care Care Encounter Source Date/Time Date/Time Type Type Clinicians Facility Department ID 2020-04-12 2020-04[id number] 2020-04-09 2020-04-09 [facility] [id number] 2020-04-09 2020-04-09 [facility] [id number] 2020-03-08 2020-03-08 Outpatient MARICEL LIU [facility] [id number] 00:00:00 00:00:00 HORACIO Rouse rso n 2020-01-29 2020-01-29 [facility] [id number] 10[facility]56:00 10:56:00 t [facility] l Medicine Outpati ent Clinics 2020-01-29 2020-01-29 [facility] [id number] 10:43:00 10:43:00 [place] [facility] Medicine Outpati ent Clinics 2020-01-27 2020-01-27 [facility] [id number] 16:13:00 16:13:00 [place] [facility] Medicine Outpati ent Clinics 2020-01-27 2020-01-27 [facility] [id number] 10[facility]00:00 10:00:00 [place] [facility] Medicine Outpati ent Clinics 2020-01-27 2020-01-27 [facility] [id number] 09:29:00 09:29:00 [place] Pharmaxis s - [facility] Medicine Medicine Outpati ent Clinics 2020-01-05 2020-01-05 [facility] [id number] 13:15:00 13:15:00 [place] [facility]max[facility] - [facility] l Medicine Outpati ent Clinics 2019-12-04 2019-12-04 Outpatient [facility] [id number] MD 11:30:35 11:30:35 Dick o n 2019-11-04 2019-11-04 [facility] [id number] 11:45:00 11:45:00 [place] Pharmaxis s - [facility] Medicine Outpati ent Clinics 2019-09-03 2019-09-03 [facility] [id number] 14:30:00 14:30:00 t [employer] Nephros [facility] Medicine Outpati ent Clinics 2019-07-31 2019-07-31 [facility] [id number] 07:58:00 07:58:00 [place] Pharmaxis s Nephros [facility] Medicine Outpati ent Clinics 2019-07-28 2019-07-28 [facility] [id number] 09:00:00 09:00:00 t [employer] Nephros [facility] Medicine Outpati ent Clinics 2019-07-01 2019-07-01 Outpatient [facility] [id number] [place] 00:00:00 00:00:[address] 2019-06-23 2019-06-23 [facility] [id number] 16:32:00 16:32:00 t [employer] Nephros [facility] Medicine Outpati ent Clinics 2019-06-12 2019-06-12 [facility] [id number] 08:26:00 08:26:00 t [employer] Nephros [facility] l Medicine Outpati ent Clinics 2019-06-05 2019-06-05 [facility] [id number] 14:30:00 14:30:00 t [employer] Nephros [facility] 2019-05-06 2019-05-06 [facility] [id number] 16:00:00 16:00:00 t RIGID [facility] 2018-09-07 2018-09-07 [facility] [id number] 09:15:00 09:15:00 t Urgent Urgent Care L [facility] 2018-07-30 2018-07-30 Outpatient MICHAEL VILLANUEVA MDA, MDA [id number] 00:00:00 00:00:00 Dick o n 2018-07-29 2018-07-29 Outpatient MICHAEL VILLANUEVA MDA, MDA [id number] 00:00:00 00:00:00 Dick o n 2018-06-13 2018-06-13 [facility] [id number] 10:30:00 10:30:00 t [employer] [facility] 2018-01-16 2018-01-16 [facility] [id number] 10:45:00 10:45:00 t Urgent Urgent Care L 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/AA: Ben MujicaPreoxygenated with 100% O2: Yes C-spine Precautions Maintained Throughout: Yes Mask Ventilation: Easy maskFinal Airway Type: Supraglottic airwayFinal LMA: I-GelLMA Size: 4Number of Attempts at Approach: 1 atraumaticHouston MethodistBasic metabolic [id number] 17:21:52 Test Item Value Reference Range Interpretation Comments Sodium (test code = 2951-2) 135 135- 148 mEq/L Potassium (test code = 2823-3) 4.6 3.5- 5.0 mEq/L Chloride (test code = 2075-0) 95 98- 112 mEq/L L CO2 (test code = 2027-9) 25 24- 31 mEq/L Anion gap (test code = 17956-9) 15@ANIO 7- 15 mEq/L BUN (test code = 3094-0) 5 mg/dL 6-20 L Creatinine (test code = 2160-0) 0.60 mg/dL 0.5-0.9 Glucose (test code = 2345-7) 129 mg/dL 65-99 H Calcium (test code = 72305-2) 10.4 mg/dL 8.3-10.2 H Lab Interpretation (test code = Abnormal 62449-2) [place] MethodistEstimated [id number] 17:21:52 Test Item Value Reference Range Interpretation Comments Estimated GFR (test >=90 mL/min/1.[address] [facility] Units code = 5488) InterpretationG 1 >=90 Normal or highG2 60-89 Mildly oaejrtxeqI6j 45-59 Mildly to mode rately aueeeujmgR1g 30-44 Moderately to severely decreasedG4 15-29 Severely decre asedG5 <15 Kidn ey failureThe eGFR was calculated dee g the Chronic Kidney Disease Epidemiology Co llaboration (CKD-EPI) equat ion. Interpretation is based on recommendations of the National Kidney Foundation-Kidn ey Disease Outcomes Qualit y Initiative (NKF-KDOQI) pub lished in 2013. Shannon [facility] [id number] 16:55:50 Test Item Value Reference Range Interpretation Comments WBC (test code = 68196-2) 9.19 4.50- 11.00 k/uL RBC (test code = 82737-4) 5.12 m/uL 4.2-5.5 HGB (test code = 718-7) 15.7 g/dL 12-16 HCT (test code = 4544-3) 47.5 % 37-47 H MCV (test code = 787-2) 92.8 fL 82-100 MCH (test code = 785-6) 30.7 pg 27-34 MCHC (test code = 786-4) 33.1 g/dL 31-37 RDW - SD (test code = 05745-4) 42.1 fL 37-55 MPV (test code = 30855-7) 9.8 fL 8.8-13.2 Platelet count (test code = 373 150- 400 k/uL 96525-9) Nucleated RBC (test code = 0.00 /100 WBC 91542-3) Lab Interpretation (test code = Abnormal 82819-9) [facility]
--- OUTSIDE RECORDS SUMMARY | 2020-04-14 08:13 | XMS REPORT ---
:1960 Author Organization eClinicalWorks Care Team Providers Name Role Phone Moura [facility] Provider Role Unavailable Allergies No [...]
--- OUTSIDE RECORDS SUMMARY | 2020-04-14 08:13 | XMS REPORT ---
:1960 Author Organization eClinicalWorks Care Team Providers Name Role Phone Moura [facility] Provider Role Unavailable Allergies No Known Allergies [...]
--- OUTSIDE RECORDS SUMMARY | 2020-04-14 08:13 | XMS REPORT ---
[...] End Date Status Dosage System Date Acetaminophen [facility] 30837755156 500 MG Orally Jan 26, Active 1 tablet every 12 hrs 2019 as needed Results No Known Results Summary Purpose eClinicalWorks Submission
--- OUTSIDE RECORDS SUMMARY | 2020-04-14 08:13 | XMS REPORT ---
:1960 Author Organization [facility] Address [address] [place] [address] Care Team Providers Name Role Phone Vargas Unavailable [phone] PROBLEMS Type Condition ICD9-CM [id number] Onset Condition SNOMED Code Notes Code Code Dates Status Problem Depression with F41.8 Active 84176152 anxiety Problem GERD without K21.9 Active 531049024 esophagitis Problem Primary M19.041 Active 13158617 osteoarthritis, right hand Problem Other chronic G89.29 Active 45520297 pain Problem Primary M19.042 Active 28016297 osteoarthritis of left hand Problem Primary M16.11 Active 589925310135456 osteoarthritis of right hip Problem HTN, goal below I10 Active 27006274 140/90 Problem Urinary tract N39.0 Active 159453039593713 infection, site not specified Problem Insect bite, W57.XXXA Active 255523153 initial encounter Problem Mixed E78.2 Active 429412636 hyperlipidemia Problem Alcohol abuse F10.10 Active 92041151 ALLERGIES No Known Allergies ENCOUNTERS from 1960 to 2020-04-12 Encounter Location Date Provider Diagnosis [facility] [address], [place] [address] IMMUNIZATIONS Vaccine Route Administration Date Status Afluria single dose IM Intramuscular Jun 05, 2019 Administere d Adacel (Tdap) IM Intramuscular December 25, 2017 Administered SOCIAL HISTORY Tobacco Use: Social History Observation Description Date Details (start date - stop date) Never Smoker Sex Assigned At : Social History Observation Description Sex Assigned At Unknown PHQ9 Question Answer Notes Little interest or pleasure in doing things Several days Feeling down, depressed, or hopeless Several days Trouble falling or staying asleep or sleeping too much Sever al days Feeling tired or having little energy Several days Poor appetite or overeating Several days Feeling bad about yourself, or that you are a failure, or morocho ve Several days let yourself or your family down Trouble concentrating on things, such as reading the newspap er Several days or watching television Moving or speaking so slowly that other people could have Se veral days noticed; or the opposite, being so fidgety or restless that you have been moving around a lot more than usual Total Score 8 Interpretation Mild Depression Thoughts that you would be better off or of hurting Not at all yourself in some way Alcohol Screen Question Answer Notes Did you have a drink containing alcohol in Yes the past year? Points 7 Interpretation Positive How often did you have 6 or more drinks on Less than monthly (1 point) one occasion in the past year? How many drinks did you have on a typical 5 or 6 (2 points) day when you were drinking in the past year? How often did you have a drink containing Four or more times a week (4 points) alcohol in the past year? Tobacco Use/Smoking Question Answer Notes Are you a never smoker REASON FOR REFERRAL No Information VITAL SIGNS No information MEDICATIONS Medication SIG (Take, Route, Notes Start Date End Date Status Frequency, Duration) Albuterol Sulfate HFA 108 2 puffs as needed Aug, Active (90 Base) MCG/ACT Inhalation every 6 hrs Lisinopril-Hydrochlorothia take 1 tablet daily Active zide 20-25 MG Orally Once a day for 30 days Pennsaid 2 % 2 pumps to affected area Active Transdermal Twice a day for 30 day(s) Meloxicam 7.5 MG 1 tablet Orally Once a Active day PRN SEvere pain Fluoxetine HCl 40 MG 1 capsule Orally Once a Active day for 30 days Amlodipine Besylate 5 MG 1 tablet Orally Once a Active day for 30 days Omeprazole 40 MG 1 capsule Orally Once a Active day for 30 day(s) Acetaminophen 500 MG 1 tablet as needed Jan, Active Orally every 12 hrs for 30 days Atorvastatin Calcium 20 MG 1 tablet Orally Once a Active day for 30 day(s) Fluoxetine HCl 40 MG 1 capsule Orally Once a Active day for 30 PROCEDURES No Information RESULTS No Results REASON FOR VISIT PCP CLEARANCE REQUEST MEDICAL (GENERAL) HISTORY Type Description Date Medical History HTN, goal below 140/90 Medical History Depression with anxiety Medical History GERD without esophagitis Medical History Primary osteoarthritis, right hand Medical History Primary osteoarthritis of left hand Surgical History C/SEC 1991 Surgical History Breast augmentation Right x 3 Surgical History Elbow 2016 Surgical History Right Index Finger DIP Fusion due to OA 05/2019 Goals Section No Information Health Concerns No Information MEDICAL EQUIPMENT No Information MENTAL STATUS No Information FUNCTIONAL STATUS No Information ASSESSMENTS No Information PLAN OF TREATMENT Medication Medication Name Sig Start Date Stop Date Atorvastatin Calcium 20 MG 1 tablet Orally Once a day for 30 day(s) Omeprazole 40 MG 1 capsule Orally Once a day for 30 day(s) Meloxicam 7.5 MG 1 tablet Orally Once a day PRN SEvere pain Fluoxetine HCl 40 MG 1 capsule Orally Once a day for 30 days Lisinopril-Hydrochlorothiazide take 1 tablet daily Orally Once 20-25 MG a day for 30 days Amlodipine Besylate 5 MG 1 tablet Orally Once a day for 30 days Pennsaid 2 % 2 pumps to affected area Transdermal Twice a day for 30 day(s) Next Appt Details Provider Name:Henrik Vargas, 2020-04-29 0 1:30:00 PM, [address], [address], [place], [address], Insurance Providers Payer Name Payer Address Payer Insured Patient Coverage Cover age End Phone Name Relationship to Start Date Immanuel e Insured [employer] [address] [phone] Patience Montejo self 2015 [address] [phone]
--- OUTSIDE RECORDS SUMMARY | 2020-04-14 08:14 | XMS REPORT ---
:1960 Author Organization [facility] Address [address], [address] [place] [address] Care Team Providers Name Role Phone Moura Unavailable [phone] PROBLEMS Type Condition ICD9-CM [id number] Onset Condition SNOMED Code Notes Code Code Dates Status Problem Depression with F41.8 Active 22402908 anxiety Problem GERD without K21.9 Active 989091363 esophagitis Problem Primary M19.041 Active 78171948 osteoarthritis, right hand Problem Other chronic G89.29 Active 90779745 pain Problem Primary M19.042 Active 60355557 osteoarthritis of left hand Problem Primary M16.11 Active 319438257237447 osteoarthritis of right hip Problem HTN, goal below I10 Active 83966564 140/90 Problem Urinary tract N39.0 Active 610472166512241 infection, site not specified Problem Insect bite, W57.XXXA Active 193114403 initial encounter Problem Mixed E78.2 Active 347557502 hyperlipidemia Problem Alcohol abuse F10.10 Active 96276738 ALLERGIES No Known Allergies ENCOUNTERS from 1960 to 2020-04-12 Encounter Location Date Provider Diagnosis [facility] [address] [place], Gucci Moura HTN, goal below 140/[address], [address] ; [place] [address] of olecranon p rocess of left ulna with routine healing, subseq uent encounter S52.0 22D ; Rib pain on rig ht side R07.81 ; Injury due to fall, subsequen t encounter W19.X XXD ; Left anterior k nee pain M25.562 ; Contu jose carlos of right foot, sub sequent encounter S90.3 1XD ; Primary osteoar thritis of right hip M1 6.11 ; Mixed hyperlipi demia E78.2 ; Elevate d LFTs R94.5 ; Depress ion with anxiety F41.8 ; GERD without esophag itis K21.9 ; Primary osteoarthritis, right hand M19.041 ; Primary osteoarthritis of left hand M19.042 ; Adult BMI 29.0-29.9 k g/sq m Z68.29 ; Alcoho l abuse F10.10 ; Noncom pliance w/medication tr eatment due to intermit use of medication Z91. 14 and Finger pain, ri ght M79.644 IMMUNIZATIONS Vaccine Route Administration Date Status Afluria [...] REASON FOR REFERRAL No Information VITAL SIGNS Height 65.5 in Mar, Weight 202 lbs Mar, Temperature 97.9 degrees Fahrenheit Mar, BMI 33.10 kg/m2 Mar, MEDICATIONS Medication SIG (Take, Route, Notes Start [...] Information RESULTS No Results REASON FOR VISIT Follow up MEDICAL (GENERAL) HISTORY Type Description Date Medical [...] No Information FUNCTIONAL STATUS No Information ASSESSMENTS Encounter Date Diagnosis Assessment Notes Treatment Notes Treatm ent Clinical Notes Mar, HTN, goal below Intermittent 140/90 (ICD-10 - controlled. I10) Instructed to measure BP at home and bring in log to follow-up. Education given., DASH Diet discussed. Instructed to measure BP at home and bring in log to f/u appt. Instructions and logs given. Education given. , HTN Education This is a condition that puts at risk for heart attack, stroke, and kidney disease. Lifestyle modification, low fat/low salt diet, exercise, low alcohol intake and medication is utilized to help control your BP. Untreated HTN increases the strain on the heart and arteries, eventually causing organ damage.Normal BP is less than 140/90. High BP is greater than 140/90. If your BP is not controlled, call your doctor. Medication may need to be adjusted and/or added. Compliance with medication is vital. If you have chest pain, shortness of breath, severe nausea/vomiting, fatigue, and other symptoms, you will need to contact your doctor or go to the ER immediately to address. Mar, Closed fracture of ED course reviewed olecranon process of extensively with left ulna with patient. Education routine healing, given. Establish subsequent encounter with orthopedic DrArtemio (ICD-10 - S52.022D) Sam. Will need ORIF. Compliant with medication. Pain control with current regimen. Avoid exacerbating activity. Patient has been medically optimized to proceed with surgery. Defer further protocol per anesthesia and surgeon. Mar, Rib pain on right . Education given. side (ICD-10 - Avoid exacerbating R07.81) activity Mar, Injury due to fall, . Fall preventions subsequent encounter discussed (ICD-10 - W19.XXXD) Mar, Left anterior knee . Superficial pain (ICD-10 - abrasion. Education M25.562) given Mar, Contusion of right . Monitored by foot, subsequent orthopedic encounter (ICD-10 - S90.31XD) Mar, Primary Seen by orthopedic. osteoarthritis of Start meloxicam. right hip (ICD-10 - Use only as needed M16.11) for severe pain. Instructed on side effect panel. Discussed supportive measures for symptomatic relief. Avoid any exacerbating activity. Mar, Mixed hyperlipidemia Worsening. Will (ICD-10 - E78.2) start atorvastatin 10 mg and titrate as tolerated. Side effect panel discussed. Education given. Instructed to inform clinic of any symptoms. , Hyperlipidemia Education: Hyperlipidemia refers to increased levels of lipids(fats) in the blood, including cholesterol and triglycerides. This can significantly increase your risk of developing coronary artery disease and peripheral artery disease. This can cause chest pain, heart attack, stroke, and fatigue. Treatment is recommended to decrease your risk. Treatment includes: lifestyle modification, low salt/low fat diet, exercise, tobacco cessation, low alcohol intake and sometimes medication. Blood tests (TC,TG, HDL, LDL) are utilized to determine treatment regimens. TC(Total cholesterol) should be below 200. TG(Total Triglycerides) should be below 150. HDL(Good cholesterol) should be above 40. LDL(Bad Cholesterol) should be below 130(if you have one risk factor) or less than 100( if you have more than one risk factor or have DM/CAD/PVD). Compliance with medication and treatment is vital. If you have questions, talk to your doctor. Mar, Elevated LFTs Discussed DDX. (ICD-10 - R94.5) Fatty liver vs. Alcohol vs. Tylenol. Will obtain US. Asymptomatic. Mar, Depression with Education given. anxiety (ICD-10 - Denies SI/HI. F41.8) Changed to Capsules: INCREASED to 40 mg. , -- Depression Education: Depression is a brain disease that makes you sad, but it is different than normal sadness. Depressed people feel down most of the time for at least 2 weeks. They also have at least one of these 2 symptoms: 1. They no longer enjoy or care about doing the things they used to like to do. 2. They feel sad, down, hopeless, or cranky most of the day, almost every day. It can also make you: lose or gain weight; sleep too much or too little; fell tired or like you have no energy; feel guilty or like you are worth nothing; forget things or feel confused; and think about or suicide. Medication and/or seeing a counselor (such as a psychiatrist, psychologist, nurse or social services coordinator) may be necessary to treat depression. Both treatments take time to work. If you ever feel like you might hurt yourself or some else, then call your doctor or call 911 or go to the ER. Mar, GERD without Making dietary esophagitis (ICD-10 changes. Using PPI - K21.9) as needed. Side effect panel dsicussed. Mar, Primary Education given. osteoarthritis, Stable with right hand (ICD-10 - intermittent use of M19.041) OTC medications. Samples of Pennsaid given. Side effect discussd. Labs Negative. Continue current reigmen. Improvement with Pennsaid. Mar, Primary osteoarthritis of left hand (ICD-10 - M19.042) Mar, Adult BMI 29.0-29.9 [place] given. kg/sq m (ICD-10 - Z68.29) Mar, Alcohol abuse Encouaged on (ICD-10 - F10.10) cessation. Education given. Mar, Noncompliance w/medication treatment due to intermit use of medication (ICD-10 - Z91.14) Mar, Finger pain, right (ICD-10 - M79.644) Mar, Other -- Medication reviewed and updated. -- Dietary and Lifestyle modifications addressed regarding diet, exercise and weight managemen t. -- Treatment options, risks and benefits, side effects reviewed in detail. -- Advised on signs/symptoms to monitor and when to call clinic and/or visit the nearest ER. Patient verbalized understanding and agreeable with plan. PLAN OF TREATMENT Medication Medication Name Sig [...] Transdermal Twice a day for 30 day(s) Treatment Notes Assessment Notes Clinical Notes Alcohol abuse Encouaged on cessation. Education given. HTN, goal below 140/90 Intermittent controlled. Instructed to measure BP at home and bring in log to follow-up. Education given., DASH Diet discussed. Instructed to measure BP at home and bring in log to f/u appt. Instructions and logs given. Education given. , HTN Education This is a condition that puts at risk for heart attack, stroke, and kidney disease. Lifestyle modification, low fat/low salt diet, exercise, low alcohol intake and medication is utilized to help control your BP. Untreated HTN increases the strain on the heart and arteries, eventually causing organ damage.Normal BP is less than 140/90. High BP is greater than 140/90. If your BP is not controlled, call your doctor. Medication may need to be adjusted and/or added. Compliance with medication is vital. If you have chest pain, shortness of breath, severe nausea/vomiting, fatigue, and other symptoms, you will need to contact your doctor or go to the ER immediately to address. Adult BMI 29.0-29.9 kg/sq m [place] given. Closed fracture of olecranon ED course reviewed extensively with process of left ulna with routine patient. Education given. healing, subsequent encounter Establish with orthopedic Dr. Vargas. Will need ORIF. Compliant with medication. Pain control with current regimen. Avoid exacerbating activity. Patient has been medically optimized to proceed with surgery. Defer further protocol per anesthesia and surgeon. Rib pain on right side . Education given. Avoid exacerbating activity Injury due to fall, subsequent . Fall preventions discussed encounter Left anterior knee pain . Superficial abrasion. Education given Contusion of right foot, subsequent . Monitored by orthoped ic encounter Primary osteoarthritis of right hip Seen by orthopedic. Sta rt meloxicam. Use only as needed for severe pain. Instructed on side effect panel. Discussed supportive measures for symptomatic relief. Avoid any exacerbating activity. Primary osteoarthritis, right hand Education given. Stable w ith intermittent use of OTC medications. Samples of Pennsaid given. Side effect discussd. Labs Negative. Continue current reigmen. Improvement with Pennsaid. GERD without esophagitis Making dietary changes. Using PPI as needed. Side effect panel dsicussed. Mixed hyperlipidemia Worsening. Will start atorvastatin 10 mg and titrate as tolerated. Side effect panel discussed. Education given. Instructed to inform clinic of any symptoms. , Hyperlipidemia Education: Hyperlipidemia refers to increased levels of lipids(fats) in the blood, including cholesterol and triglycerides. This can significantly increase your risk of developing coronary artery disease and peripheral artery disease. This can cause chest pain, heart attack, stroke, and fatigue. Treatment is recommended to decrease your risk. Treatment includes: lifestyle modification, low salt/low fat diet, exercise, tobacco cessation, low alcohol intake and sometimes medication. Blood tests (TC,TG, HDL, LDL) are utilized to determine treatment regimens. TC(Total cholesterol) should be below 200. TG(Total Triglycerides) should be below 150. HDL(Good cholesterol) should be above 40. LDL(Bad Cholesterol) should be below 130(if you have one risk factor) or less than 100( if you have more than one risk factor or have DM/CAD/PVD). Compliance with medication and treatment is vital. If you have questions, talk to your doctor. Elevated LFTs Discussed DDX. Fatty liver vs. Alcohol vs. Tylenol. Will obtain US. Asymptomatic. Depression with anxiety Education given. Denies SI/HI. Changed to Capsules: INCREASED to 40 mg. , -- Depression Education: Depression is a brain disease that makes you sad, but it is different than normal sadness. Depressed people feel down most of the time for at least 2 weeks. They also have at least one of these 2 symptoms: 1. They no longer enjoy or care about doing the things they used to like to do. 2. They feel sad, down, hopeless, or cranky most of the day, almost every day. It can also make you: lose or gain weight; sleep too much or too little; fell tired or like you have no energy; feel guilty or like you are worth nothing; forget things or feel confused; and think about or suicide. Medication and/or seeing a counselor (such as a psychiatrist, psychologist, nurse or social services coordinator) may be necessary to treat depression. Both treatments take time to work. If you ever feel like you might hurt yourself or some else, then call your doctor or call 911 or go to the ER. Treatment Notes Test Name Order Date Lipid Panel With LDL/HDL Ratio 2020-04-12 Comp. Metabolic Panel (14) (CMP) 2020-04-12 CBC With Differential/Platelet 2020-04-12 Next Appt Details 05/2020 [facility] Reason: Provider Name:Henrik Sam, 2020-04-29 0 1:30:00 PM, [address], [place], [address], Insurance Providers Payer Name Payer Address Payer Insured Patient Coverage Cover age End Phone Name Relationship to Start Date Immanuel e Insured [employer] [address] [phone] Patience Montejo self 2015 [address] [phone]
--- OUTSIDE RECORDS SUMMARY | 2020-04-14 08:14 | XMS REPORT ---
:1960 Author Organization [facility] Address [address] [facility] [address] [place] [address] Care Team Providers Name Role Phone Vargas Unavailable [phone] PROBLEMS Type Condition ICD9-CM [id number] Onset Condition SNOMED Code Notes Code Code Dates Status Problem Depression with F41.8 Active 17006290 anxiety Problem GERD without K21.9 Active 103886286 esophagitis Problem Primary M19.041 Active 08555743 osteoarthritis, right hand Problem Other chronic G89.29 Active 92982903 pain Problem Primary M19.042 Active 62086131 osteoarthritis of left hand Problem Primary M16.11 Active 514614606579758 osteoarthritis of right hip Problem HTN, goal below I10 Active 70236876 140/90 Problem Urinary tract N39.0 Active 908392770842550 infection, site not specified Problem Insect bite, W57.XXXA Active 598675756 initial encounter Problem Mixed E78.2 Active 006595459 hyperlipidemia Problem Alcohol abuse F10.10 Active 66490777 ALLERGIES No Known Allergies ENCOUNTERS from 1960 to 2020-04-14 Encounter Location Date Provider Diagnosis [facility] [address] Mar, Henrik Erickson ed fracture of [facility] [address] [place], olecranon process [facility] [address] of left ulna, initial encount er S52.022A ; Contusion of ri ght foot, initial encounter S90.3 1XA ; Left elbow pa in M25.522 and Rig ht foot pain M79.6 71 IMMUNIZATIONS Vaccine Route Administration Date Status Afluria single dose IM Intramuscular Jun 05, 2019 Administernusrat Rocha (Tdap) IM Intramuscular December 25, 2017 Administered [...] slowly that other people could have Se ver days noticed; or the opposite, being so [...] VITAL SIGNS Height 65.5 in Mar, Weight 200 lbs Mar, BMI 32.77 kg/m2 Mar, Blood pressure systolic 152 mm Hg Mar, Blood pressure diastolic 92 mm Hg Mar, MEDICATIONS Medication SIG (Take, Route, Notes [...] Information RESULTS No Results REASON FOR VISIT NEW PT: LEFT ELBOW PAIN MEDICAL (GENERAL) HISTORY Type Description Date Medical [...] Treatment Notes Treatm ent Clinical Notes Mar, Closed fracture I discussed with the of olecranon patient at length her process of left diagnosis and ulna, initial treatment plan and encounter she expressed (ICD-10 - understanding. Given S52.022A) the displacement and fracture pattern, I recommend ORIF of her left olecranon fracture. I discussed with the patient risks and benefits associated with the procedure at length as well as postoperative rehabilitation and she expressed understanding. She will followup 2 weeks postop. Mar, Contusion of -proceed with RICE right foot, therapy initial -continue with CAM encounter boot (ICD-10 - -will reeval in 2 S90.31XA) weeks Mar, Left elbow pain (ICD-10 - M25.522) Mar, Right foot pain (ICD-10 - M79.671) PLAN OF TREATMENT Medication Medication Name Sig [...] day(s) Treatment Notes Assessment Notes Clinical Notes Closed fracture of olecranon I discussed with the patient at process of left ulna, initial length her diagnosis and treat ment encounter plan and she expressed understanding. Given the displacement and fracture pattern, I recommend ORIF of her left olecranon fracture. I discussed with the patient risks and benefits associated with the procedure at length as well as postoperative rehabilitation and she expressed understanding. She will followup 2 weeks postop. Contusion of right foot, initial -proceed with RICE therapy- continue encounter with CAM bonakul-will reeval in 2 weeks Next Appt Details 2 Weeks postop Reason: Provider Name:Henrik Vargas, 2020-04-29 0 1:30:00 PM, [address] [facility] [address], [place], [address], Insurance Providers Payer Name Payer Address Payer Insured Patient Coverage Cover age End Phone Name Relationship to Start Date Immanuel e Insured [employer] [address] [phone] Patience Montejo self 2015 [address] [phone]
[2020-04-14] MEDS ORDERED: propofoL 200 MG/20 ML VIAL IV ONE (08:34)
[2020-04-14] MEDS ORDERED: NS 0.9% VIAL 10 ML ONE (08:35)
[2020-04-14] MEDS ORDERED: FENTANYL CITR 100 MCG/2 ML ONE (08:35)
[2020-04-14] MEDS ORDERED: LIDOCAINE 2% MPF 5 ML VIAL ONE (08:35)
[2020-04-14] MEDS ORDERED: dexAMETHasone 10 MG/ML VIAL ONE ×2 (08:35→08:41)
[2020-04-14] MEDS ORDERED: MIDAZOLAM HCL 2 MG/2 ML INJ ONE (08:35)
[2020-04-14] MEDS ORDERED: ONDANSETRON 4 MG/2 ML VIAL ONE ×2 (08:40→12:53)
[2020-04-14] MEDS ORDERED: KETOROLAC 30 MG/ML INJ ONE (08:41)
[2020-04-14] MEDS ORDERED: ROCURONIUM 50 MG/5 ML VIAL IV ONE (08:41)
[2020-04-14] MEDS ORDERED: Ringers Lactate 1,000 ML IV ONE (08:51)
[2020-04-14] MEDS ORDERED: CEFAZOLIN/SWI 2gm 2 GM/20 ML SYR ONE (08:52)
[2020-04-14] MEDS ORDERED: ROPLVACAINE HCL 40 ML ONE (09:54)
[2020-04-14] MEDS ORDERED: BUPIVACAINE 0.25% PF 10 ML VIAL ONE (09:56)
[2020-04-14] MEDS: BUPIVACAINE 0.25% PF 30 ML VIAL ONE ×2 (10:41→11:49)
--- NOTE | 2020-04-14 12:25 | RAD REPORT ---
EXAM DESCRIPTION: RAD - Fluoroscopy >1 Hr - 04/14/2020 12:16 pm FINDINGS: Open reduction internal fixation of an elbow fracture was performed by the referring physi berry. There were 21 portable C-arm views obtained during a fluoroscopic assisted placement of fractur e fixation hardware. Images show no suspicious or unexpected finding. Fluoro time was 0.6 minutes. Cumulative dose was calculated as 1.17 mGy.
[2020-04-14] MEDS ORDERED: HYDROCODONE/APAP 7.5/325 MG TAB PO ONE (13:25)
[2020-04-14] MEDS ORDERED: HYDROCODONE/APAP 7.5/325 MG TAB ONE (13:32)
--- NOTE | 2020-04-14 13:46 | RAD REPORT ---
EXAM DESCRIPTION: RAD - Elbow Left 2 View - 04/14/2020 1:18 pm CLINICAL HISTORY: Olecranon fracture FINDINGS: Limited two view series obtained Plate and screws affix an olecranon fracture. No dislocation
--- NOTE | 2020-04-14 15:05 | P.BOP ---
Preoperative diagnosis: left olecranon fracture Postoperative diagnosis: same Primary procedure: ORIF left olecranon fracture Ramp Service Man: NONE,NONE Estimated blood loss: 10 cc Specimen: none Findings: see dictation Anesthesia: General Complications: None Implants: Acumed olecranon locking plate Fluids & blood products: per anesthesia record Transferred to: Recovery Room Condition: Good
[2020-04-14 16:32] VITALS: TEMP 97.1; O2SAT 96
[2020-04-14 16:33] VITALS: BP 122/89
--- NOTE | 2020-04-14 22:58 | OP ---
Date of Procedure: 04/14/2020 Surgeon: Henrik Vargas MD Preoperative Diagnosis: Left olecranon fracture. Postoperative Diagnosis: Left olecranon fracture. Procedure Performed: Open reduction and internal fixation, left olecranon fracture Fluids: Per Anesthesia record. Estimated Blood Loss: Less than 10 cc. Complications: None. Implants: Three-hole Acumed olecranon locking plate. Indication For Procedure: Patience is a 59-year-old female who presented to my clinic after sustaining a to her left elbow. She had outside x-rays which had demonstrated a left displaced olecra non fracture that was placed in a posterior splint. Given the significant displacement of the fractu re, I recommended an operative treatment including open reduction and internal fixation. She express ed understanding and elected to proceed with operative treatment. Description Of Procedure: After informed consent was obtained, the patient was identified in the pre operative holding area. The left upper extremity was marked. The patient was then taken back to the operative, transferred to the operative table in supine fashion, and placed under general LMA anesth esia. She was then placed in the right lateral decubitus position with her extremities well padded a nd the left upper extremity was prepped and draped in the usual sterile fashion. Time-out was initia gama. Correct patient and procedure were confirmed and identified. The patient did receive her preop erative prophylactic antibiotics. The left upper extremity was exsanguinated using an Esmarch and th e tourniquet was inflated to 250 mmHg. Approximately, a 10 cm longitudinal incision was made over th e posterior aspect of the left elbow and dissection was then taken down to the olecranon. The tricep s was preserved. The fracture was then debrided using a curette and the fracture edges were freshene d. The fracture was reduced using a pointed reduction clamp and K-wires. Preliminary K-wires were p laced reduction. The plate was then placed on the olecranon and x-rays demonstrated overa ll good placement of the hardware and position. The first 2 proximal locking screws were placed with good overall fixation and confirmation using fluoroscopy followed by a screw in compressi on mode distally. Two remaining distal cortical screws were placed followed by the Hohmann screw in unicortical fashion proximally. One remaining proximal screw was then placed in locking mode. Fluor oscopy was then used to ensure that all screws were not within the joint. The patient had full range of motion without any crepitus. The wounds were then irrigated thoroughly with normal saline. Subc utaneous tissue was approximated using 2-0 Vicryl and deep fascia was approximated using 0 Vicryl. S kin was approximated using 3-0 nylon. Sterile dressings were applied. The patient was placed in a p osterior splint, awakened, and transferred to PACU in stable condition. Postoperative Plan: The patient will be nonweightbearing of her left upper extremity. She will cassius in in the posterior splint for 2 weeks. Return to clinic in 2 weeks for wound check. MIESHA/MODL Voice ID: [id number] Report ID: [id number]
== END 2020-04-14 14:10 | disposition home or self-care (01) ==
LOC: OR 08:09
PROVIDERS: ATTEND Orthopaedic Surgery Sports Medicine
PROC: 0PSL04Z Reposition Left Ulna with Internal Fixation Device, Open Approach (ICD-10-PCS; principal; 2020-04-14 10:00)
DX: S52.022A Displaced fracture of olecranon process without intraarticular extension of left ulna, initial encounter for closed fracture (principal); S90.31XA Contusion of right foot, initial encounter; Z20.828 Contact with and (suspected) exposure to other viral communicable diseases; I10 Essential (primary) hypertension; F41.8 Other specified anxiety disorders; K21.9 Gastro-esophageal reflux disease without esophagitis; M19.041 Primary osteoarthritis, right hand; M19.042 Primary osteoarthritis, left hand; V86.99XA Unspecified occupant of other special all-terrain or other off-road motor vehicle injured in nontraffic accident, initial encounter
CPT/HCPCS: 93005; 73070; 24685; U0002; J2704; J2250; J3010; J1100 ×2; J2795; J0690; J7120; J2405 ×2

== ENCOUNTER 2021-11-01 08:55 | Emergency (ER) | payer BC, OTHER ==
--- OUTSIDE RECORDS SUMMARY | 2021-11-01 08:58 | XMS REPORT | Continuity of Care Document ---
:1960 Author Organization [facility] t Address [address] [place] [address] Care Team Providers Name Role Phone [phone] Primary Care Physician Unavailable Antelmo Moura Attending Clinician Unavailable Mavis LIU Attending Clinician Unavailable RC Attending Clinician Unavailable LÁZARO CARRILLO Attending Clinician Unavailable RC Admitting Clinician Unavailable Payers Payer Name Policy Type Policy Number Effective Date Expiration Date S ourhermilo [place] P[place] POS [id number] 2014 2017 00:00:0 0 00:00:00 CIG[employer] O POS [id number] 2017 OPEN ACCESS 00:00:00 Problems This patient has no known problems. Allergies, Adverse Reactions, Alerts This patient has no known allergies or adverse reactions. Medications Ordered Filled Start Stop Current Ordering Indication Dosage Frequency Signature Comments Components Source Medication Medication Date Date Medication? Clinician (SIG) Name Name Acetaminoph Acetaminoph 2020- No Monisha 1 tablet Common en en 01-26 Cristian as needed [facility] 00:00: 00:00 - [facility] 00 :00 [facility] Immunizations Ordered Immunization Filled Immunization Date Status Commen ts Source Name Name Afluria single dose Afluria single dose 2019-06-05 Completed [facility] 00:00:[facility] Procedures This patient has no known procedures. Encounters Start End Encounter Admission Attending Care Care Encounter Source Date/Time Date/Time Type Type Clinicians Facility Department ID 2021-06-30 Outpatient MDA MDA [id number] 17:41:11 Anderso n 2021-06-22 Outpatient Moura, STLMLC [facility] [id number] Common 14:09:06 Gucci [id number] [facility] 2021-06-22 Outpatient Moura, STLMLC [facility] [id number] Common 13:32:52 Gucci 14790 [facility] 2021-06-22 Outpatient Moura, STLMLC [facility] [id number] Common 13:31:25 Gucci [id number] [facility] 2021-06-22 Outpatient Moura, STLMLC [facility] [id number] Common 12:54:38 Gucci [id number] [facility] 2021-06-22 Outpatient Moura, [facility] [id number] Common 12:54:02 Gucci 21059 [facility] 2021-06-22 Outpatient Moura, STLMLC [facility] [id number] Common 12:52:04 Gucci 21446 [facility] 2021-06-22 Outpatient Moura, [facility] [id number] Common 12:23:14 Gucci [id number] [facility] 2021-06-22 Outpatient Moura, STLMLC [facility] [id number] Common 12:05:03 Gucci [id number] [facility] 2021-06-22 Outpatient Moura, STLMLC [facility] [id number] Common 12:04:29 Gucci 14428 [facility] 2021-06-22 Outpatient Moura, STLMLC [facility] [id number] Common 11:48:35 Gucci 38975 [facility] 2021-06-22 Outpatient Moura, STLMLC [facility] [id number] Common 11:42:19 Gucci 68953 [facility] 2021-06-22 Outpatient Moura, STLMLC [facility] [id number] Common 11:25:11 Gucci [id number] [facility] 2021-06-22 Outpatient Moura, STLC [facility] [id number] Common 11:17:13 Gucci 26517 [facility] 2021-06-22 Outpatient Moura, STLMLC STL[facility]C [id number] Common 11:16:17 Gucci 74015 [facility] 2021-06-22 Outpatient Moura, STLMLC ST[facility] [id number] Common 11:11:09 Gucci 73496 [facility] 2021-06-22 Outpatient Moura, STLMLC STL[facility]C [id number] Common 11:03:34 Gucci 67834 [facility] 2021-06-22 Outpatient Moura, STLMLC ST[facility] [id number] Common 10:59:26 Gucci [id number] [facility] 2021-10-13 2021-10-13 ambulatory STLMLC STLMLC [id number] Common 00:00:00 00:00:00 [facility] 2021-10-05 2021-10-05 ambulatory STLMLC STLMLC [id number] Common 00:00:00 00:00:00 [facility] 2021-08-02 2021-08-02 ambulatory STLMLC STLMLC [id number] Common 00:00:00 00:00:00 [facility] 2021-04-07 2021-04-07 ambulatory STLMLC STLMLC [id number] Common 00:00:00 00:00:00 [facility] 2021-03-31 2021-03-31 ambulatory STLMLC STLMLC [id number] Common 00:00:00 00:00:00 [facility] 2020-12-23 2020-12-23 Outpatient STLMLC STLMLC [id number] Common 00:00:00 00:00:00 [facility] 2020-09-23 2020-09-23 Outpatient STLMLC STLMLC [id number] Common 00:00:00 00:00:00 [facility] 2020-06-23 2020-06-23 Outpatient STLMLC STLMLC [id number] Common 00:00:00 00:00:00 [facility] 2020-06-21 2020-06-21 Outpatient STLMLC STLMLC [id number] Common 00:00:00 00:00:00 [facility] 2020-06-16 2020-06-16 Outpatient STLMLC STLMLC [id number] Common 00:00:00 00:00:00 [facility] 2020-05-25 2020-05-25 Outpatient STLMLC STLMLC [id number] Common 00:00:00 00:00:00 [facility] 2020-05-17 2020-05-17 Outpatient STLMLC STLMLC [id number] Common 00:00:00 00:00:00 [facility] 2020-05-17 2020-05-17 Outpatient STLMLC STLMLC [id number] Common 00:00:00 00:00:00 [facility] 2020-05-17 2020-05-17 Outpatient STLMLC STLMLC [id number] Common 00:00:00 00:00:00 [facility] 2020-04-29 2020-04-29 Outpatient STLMLC STLMLC [id number] Common 00:00:00 00:00:00 [facility] 2020-04-12 2020-04-12 Outpatient STLMLC STLMLC [id number] Common 00:00:00 00:00:00 [facility] 2020-04-09 2020-04-09 Outpatient STLMLC STLMLC [id number] Common 00:00:00 00:00:00 [facility] 2020-04-09 2020-04-09 Outpatient STLMLC STLMLC [id number] Common 00:00:00 00:00:00 [facility] 2020-03-08 2020-03-08 Outpatient MARICEL LIU MDA MDA [id number] 00:00:00 00:00:00 HORACIO isaacs 2020-01-29 2020-01-29 [facility] [id number] Common 10:56:00 10:56:[address] [facility] 2020-01-29 2020-01-29 [facility] [id number] Common 10:43:00 10:43:[address] [facility] 2020-01-27 2020-01-27 [facility] [id number] Common 16:13:00 16:13:[address] [facility] 2020-01-27 2020-01-27 [facility] [id number] Common 10:00:00 10:00:[address] [facility] 2020-01-27 2020-01-27 [facility] [id number] Common 09:29:00 09:29:[address] [facility] 2020-01-05 2020-01-05 [facility] [id number] Common 13:15:00 13:15:[address] [facility] 2019-12-04 2019-12-04 Outpatient EL MDA MDA [id number] MD 11:30:35 11:30:35 Dick o n 2019-11-04 2019-11-04 [facility] [id number] Common 11:45:00 11:45:[address] [facility] 2019-09-03 2019-09-03 [facility] [id number] Common 14:30:00 14:30:[address] [facility] 2019-07-31 2019-07-31 [facility] [id number] Common 07:58:00 07:58:[address] [facility] 2019-07-28 2019-07-28 [facility] [id number] Common 09:00:00 09:00:[address] [facility] 2019-07-01 2019-07-01 Outpatient [facility] [id number] [place] 00:00:00 00:00:[address] 2019-06-23 2019-06-23 [facility] [id number] Common 16:32:00 16:32:[address] [facility] 2019-06-12 2019-06-12 [facility] [id number] Common 08:26:00 08:26:[address] [facility] 2019-06-05 2019-06-05 [facility] [id number] Common 14:30:00 14:30:[address] [facility] 2019-05-06 2019-05-06 [facility] [id number] Common 16:00:00 16:00:[address] [facility] 2018-09-07 2018-09-07 [facility] [id number] Common 09:15:00 09:15:00 t [facility] 2018-07-30 2018-07-30 Outpatient MICHAEL VILLANUEVA MDA, MDA [id number] 00:00:00 00:00:00 Dick o ferny 2018-07-29 2018-07-29 Outpatient MICHAEL VILLANUEVA MDA, MDA [id number] 00:00:00 00:00:00 Dick o ferny 2018-06-13 2018-06-13 Out[facility] [id number] Common 10:30:00 10:30:[address] [facility] 2018-01-16 2018-01-16 [facility] [id number] Common 10:45:00 10:45:00 t [facility] Results This patient has no known results.
[2021-11-01] MEDS ORDERED: FENTANYL CITR 100 MCG/2 ML ONE (09:27)
[2021-11-01] MEDS ORDERED: LIDOCAINE 4% PATCH ONE (09:28)
[2021-11-01 09:37] LABS: Absolute Lymphocytes (CBC) 3.2 K/uL (0.7-4.9); Lymphocytes % 29.8 % (15.3-44.8); MPV 7.4 fL (7.6-11.3); RBC Red Blood Cell Count 5.48 M/uL (3.86-4.86)
--- NOTE | 2021-11-01 10:05 | RAD REPORT ---
EXAM DESCRIPTION: CT - Stone Protocol - 11/01/2021 9:48 am CLINICAL HISTORY: right mid/low back pain COMPARISON: Abdomen Pelvis W Contrast dated 11/20/2019 TECHNIQUE: Axial 3 mm thick images were obtained without oral or IV contrast. The untio-oa-stow span s the entirety of the system including uppermost abdomen and lung bases. All CT scans are performed using dose optimization technique as appropriate and may include automated exposure control or mA/KV adjustment according to patient size. FINDINGS: Imaging through the lung base shows no cardiomegaly. Slight thickening of the pericardium is seen not substantially different from 2020. Soft tissue density along the deep lateral margin of t he partially imaged right implant also unchanged. Patient has linear scarring or atelectasis at the a nterior aspect of each lung base. No hydronephrosis is present and no obstructing ureteral calculi. No suspicious renal masses. Isodens e masses and pyelonephritis are not excluded on a stone protocol CT scan. No significant adrenal find ing. No retroperitoneal hematoma or mass. Mostly contracted urinary bladder shows no suspicious findi ng. Atrophic uterus and ovaries also without suspicious finding. Liver shows fatty infiltration pattern with no focal lesion on noncontrast imaging. No gallbladder or biliary tree abnormality seen. Gallstones can be occult on CT imaging. Pancreas and spleen show no s uspicious findings. No suspicious bowel findings. Cecum is low-lying in the pelvic floor. Appendix is in the deep posteri or aspect of the pelvis, unremarkable. No hernia, mass or bulky lymphadenopathy noted. No free air, free fluid or inflammatory stranding. The T9 body shows an approximately 20% overall loss in height with acute fracture lines identifiable. There is slight buckling along the posterior wall of the T9 body. T12 body shows partial compression along the superior endplate with acute fracture line seen. There is approximately 10-15% loss in hei ght with posterior wall height preserved. Degenerative changes are present in the lower lumbar spine. IMPRESSION: Acute compression fracture changes in the T9 and T12 bodies with 20% T9 and 10-15% T12 h eight loss. No acute abnormality. No retroperitoneal hematoma or mass. Isodense masses and pyelonephritis are not excluded on stone protocol technique.
[2021-11-01 10:08] LABS: Urine Blood Negative (Negative); Urine Glucose Negative (Negative); Urine Protein Negative (Negative)
[2021-11-01 10:13] LABS: Albumin 4.5 g/dL (3.4-5.0); Bilirubin Total 0.5 mg/dL (0.2-1.0); Protein, Total 9.5 g/dL (6.4-8.2)
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
[2021-11-01 10:44] LABS: Urine Bacteria 20-50 /HPF (<20); Urine RBC <5 /HPF (NONE SEEN)
[2021-11-01] MEDS ORDERED: HYDROCODONE/APAP 7.5/325 MG TAB ONE (10:45)
[2021-11-01 11:03] VITALS: TEMP 98.3
[2021-11-01 11:05] VITALS: BP 130/87; O2SAT 98
== END 2021-11-01 10:52 | disposition home or self-care (01) ==
LOC: ER 08:55
DX: S22.078A Other fracture of T9-T10 vertebra, initial encounter for closed fracture (principal); S22.088A Other fracture of T11-T12 vertebra, initial encounter for closed fracture; I10 Essential (primary) hypertension
CPT/HCPCS: 87088; 85025; 87086; 36415; 83690; 80053; 76377; 74176; 96374; 99284; J3010; J2001; 81003; 81015

== ENCOUNTER 2021-11-04 22:46 | Emergency (ER) | payer BC ==
--- OUTSIDE RECORDS SUMMARY | 2021-11-04 22:49 | XMS REPORT | Continuity of Care Document ---
:1960 Author Organization [facility] t Address [address] [place] [address] Care Team Providers Name Role Phone [phone] Primary Care Physician Unavailable Antelmo Moura Attending Clinician Unavailable Mavis LIU Attending Clinician Unavailable RC Attending Clinician Unavailable LÁZARO CARRILLO Attending Clinician Unavailable RC Admitting Clinician Unavailable Payers Payer Name Policy Type Policy Number Effective Date Expiration Date S ourhermilo [place] P[place] POS [id number] 2014 2017 00:00:0 0 00:00:00 CIGNA O POS [id number] 2017 OPEN ACCESS 00:00:00 Problems This patient [...] [facility] 00:00: 00:00 - [facility] 00 :00 [facility] Immunizations Ordered Immunization Filled Immunization Date Status Commen ts Source Name Name Afluria single dose Afluria single dose 2019-06-05 Completed [facility] 00:00:00 - [facility] Procedures This patient has no known procedures. Encounters Start End Encounter Admission Attending Care Care Encounter Source Date/Time Date/Time Type Type Clinicians Facility Department ID 2021-06-30 Outpatient MDA MDA [id number] 17:41:11 Anderso n 2021-06-22 Outpatient Moura, STLMLC [facility] [id number] Common 14:09:06 Gucci [id number] [facility] 2021-06-22 Outpatient Moura, STLMLC ST[facility] [id number] Common 13:32:52 Gucci [id number] [facility] 2021-06-22 Outpatient Moura, STLMLC [facility] [id number] Common 13:31:25 Gucci 78932 [facility] 2021-06-22 Outpatient Moura, STLMLC [facility] [id number] Common 12:54:38 Gucci [id number] [facility] 2021-06-22 Outpatient [facility]ra[facility] [id number] Common 12:54:02 Gucci 80363 [facility] 2021-06-22 Outpatient Moura, STLMLC [facility] [id number] Common 12:52:04 Gucci [id number] [facility] 2021-06-22 Outpatient Moura, [facility] [id number] Common 12:23:14 Gucci 87557 [facility] 2021-06-22 Outpatient Moura, STLMLC [facility] [id number] Common 12:05:03 Gucci 72906 [facility] 2021-06-22 Outpatient [facility]ra[facility] [id number] Common 12:04:29 Gucci 04151 [facility] 2021-06-22 Outpatient Moura, STLMLC ST[facility] [id number] Common 11:48:35 Gucci 64339 [facility] 2021-06-22 Outpatient Moura, STLMLC STLC [id number] Common 11:42:19 Gucci 26367 [facility] 2021-06-22 Outpatient Moura, STLMLC [facility] [id number] Common 11:25:11 Gucci 51248 [facility] 2021-06-22 Outpatient Moura, STLC STLC [id number] Common 11:17:13 Gucci [id number] [facility] 2021-06-22 Outpatient Moura, STLMLC STL[facility]C [id number] Common 11:16:17 Gucci 87974 [facility] 2021-06-22 Outpatient Moura, STLMLC STL[facility]C [id number] Common 11:11:09 Gucci 11469 [facility] 2021-06-22 Outpatient Moura, STLMLC STLMLC [id number] Common 11:03:34 Gucci 70669 [facility] 2021-06-22 Outpatient Moura, STLMLC STLMLC [id number] Common 10:59:26 Gucci [id number] [facility] 2021-10-13 2021-10-13 ambulatory STLMLC STLMLC [id number] Common 00:00:00 00:00:00 [facility] 2021-10-05 2021-10-05 ambulatory STLMLC STLMLC [id number] Common 00:00:00 00:00:00 [facility] 2021-08-02 2021-08-02 ambulatory STLMLC STLMLC [id number] Common 00:00:00 00:00:00 [facility] 2021-04-07 2021-04-07 ambulatory STLMLC STLMLC [id number] Common 00:00:00 00:00:00 [facility] 2021-03-31 2021-03-31 ambulatory STLMLC STLMLC [id number] Common 00:00:00 00:00:00 [facility] 2020-12-23 2020-12-23 Outpatient STLMLC STLMLC [id number] Common 00:00:00 00:00:00 [facility] 2020-09-23 2020-09-23 Outpatient STLMLC STLMLC [id number] Common 00:00:00 00:00:00 [facility] 2020-06-23 2020-06-23 Outpatient STLMLC STLMLC [id number] Common 00:00:00 00:00:00 [facility] 2020-06-21 2020-06-21 Outpatient STLMLC STLMLC [id number] Common 00:00:00 00:00:00 [facility] 2020-06-16 2020-06-16 Outpatient STLMLC STLMLC [id number] Common 00:00:00 00:00:00 [facility] 2020-05-25 2020-05-25 Outpatient STLMLC STLMLC [id number] Common 00:00:00 00:00:00 [facility] 2020-05-17 2020-05-17 Outpatient STLMLC STLMLC [id number] Common 00:00:00 00:00:00 [facility] 2020-05-17 2020-05-17 Outpatient STLMLC STLMLC [id number] Common 00:00:00 00:00:00 [facility] 2020-05-17 2020-05-17 Outpatient STLMLC STLMLC [id number] Common 00:00:00 00:00:00 [facility] 2020-04-29 2020-04-29 Outpatient STLMLC STLMLC [id number] Common 00:00:00 00:00:00 [facility] 2020-04-12 2020-04-12 Outpatient STLMLC STLMLC [id number] Common 00:00:00 00:00:00 [facility] 2020-04-09 2020-04-09 Outpatient STLMLC STLMLC [id number] Common 00:00:00 00:00:00 [facility] 2020-04-09 2020-04-09 Outpatient STLMLC STLMLC [id number] Common 00:00:00 00:00:00 [facility] 2020-03-08 2020-03-08 Outpatient MARICEL LIU MDA MDA [id number] 00:00:00 00:00:00 HORACIO isaacs 2020-01-29 2020-01-29 [facility] [id number] Common 10:56:00 10:56:[address] [facility] 2020-01-29 2020-01-29 [facility] [id number] Common 10:43:00 10:43:[address] [facility] 2020-01-27 2020-01-27 [facility] [id number] Common 16:13:00 16:13:[address] [facility] 2020-01-27 2020-01-27 [facility] [id number] Common 10:00:00 10:00:[address] [facility] 2020-01-27 2020-01-27 [facility] [id number] Common 09:29:00 09:29:[address] [facility] 2020-01-05 2020-01-05 Out[facility] [id number] Common 13:15:00 13:15:[address] [facility] 2019-12-04 2019-12-04 Outpatient EL MDA MDA [id number] MD 11:30:35 11:30:35 Dick o n 2019-11-04 2019-11-04 [facility] [id number] Common 11:45:00 11:45:[address] [facility] 2019-09-03 2019-09-03 [facility] [id number] Common 14:30:00 14:30:[address] [facility] 2019-07-31 2019-07-31 Out[facility] [id number] Common 07:58:00 07:58:[address] [facility] 2019-07-28 2019-07-28 Out[facility] [id number] Common 09:00:00 09:00:[address] [facility] 2019-07-01 2019-07-01 Outpatient [facility] [id number] [place] 00:00:00 00:00:[address] 2019-06-23 2019-06-23 [facility] [id number] Common 16:32:00 16:32:[address] [facility] 2019-06-12 2019-06-12 Out[facility] [id number] Common 08:26:00 08:26:[address] [facility] 2019-06-05 2019-06-05 Out[facility] [id number] Common 14:30:00 14:30:[address] [facility] 2019-05-06 2019-05-06 Out[facility] [id number] Common 16:00:00 16:00:[address] [facility] 2018-09-07 2018-09-07 Out[facility] [id number] Common 09:15:00 09:15:00 t [facility]gent [facility] 2018-07-30 2018-07-30 Outpatient MICHAEL VILLANUEVA MDA, MDA [id number] 00:00:00 00:00:00 Dick o ferny 2018-07-29 2018-07-29 Outpatient MICHAEL VILLANUEVA MDA, MDA [id number] 00:00:00 00:00:00 Dick o ferny 2018-06-13 2018-06-13 Out[facility] [id number] Common 10:30:00 10:30:[address] [facility] 2018-01-16 2018-01-16 Out[facility] [id number] Common 10:45:00 10:45:00 t Urgent [facility] Results This patient has no known results.
[2021-11-05] MEDS ORDERED: NA CHLORIDE 0.9% 1,000 ML ONE (00:27)
[2021-11-05] MEDS ORDERED: LORazepam 2 MG/ML VIAL ONE ×2 (00:27→04:31)
[2021-11-05] MEDS ORDERED: ONDANSETRON 4 MG/2 ML VIAL ONE (00:27)
[2021-11-05 00:37] LABS: Urine Blood Trace-intact (Negative); Urine Glucose Negative (Negative); Urine Protein Negative (Negative)
[2021-11-05 00:45] LABS: Absolute Lymphocytes (CBC) 1.8 K/uL (0.7-4.9); Hematocrit 38.8 % (36.0-45.0); Lymphocytes % 22.3 % (15.3-44.8); MPV 7.1 fL (7.6-11.3); RBC Red Blood Cell Count 4.56 M/uL (3.86-4.86)
[2021-11-05 00:48] LABS: Protime INR 0.99
[2021-11-05 01:04] LABS: Barbiturates NEGATIVE (NEGATIVE); Benzodiazepines NEGATIVE (NEGATIVE); Cocaine NEGATIVE (NEGATIVE); METHAMPHETAM NEGATIVE (NEGATIVE); Methadone NEGATIVE (NEGATIVE); Opiates POSITIVE (NEGATIVE); Phencyclidine NEGATIVE (NEGATIVE); THC Cannibis NEGATIVE (NEGATIVE)
[2021-11-05 01:17] LABS: Albumin 3.8 g/dL (3.4-5.0); Alkaline Phosphatase 123 U/L (45-117); BUN Blood Urea Nitrogen 9 mg/dL (7-18); Bicarbonate 28 mmol/L (21-32); Bilirubin Direct 0.1 mg/dL (0-0.2); Bilirubin Total 0.3 mg/dL (0.2-1.0); Glomerular Filtration Rate 104 ml/min (=/>90); Glucose Level 143 mg/dL (74-106); Protein, Total 7.7 g/dL (6.4-8.2); Sodium Level 135 mmol/L (136-145)
[2021-11-05 02:27] LABS: ALT/SGPT 27 U/L (12-78)
[2021-11-05 02:29] LABS: AST/SGOT 22 U/L (15-37); Potassium 3.2 mmol/L (3.5-5.1)
[2021-11-05] MEDS ORDERED: POTASSIUM 25 MEQ EFFERV TAB ONE (03:00)
[2021-11-05] MEDS ORDERED: MAGNESIUM OXIDE 400 MG TAB ONE (03:55)
--- NOTE | 2021-11-05 04:32 | EDPHYS ---
Physician Documentation [facility] Name: Patience Montejo Age: 60 yrs Sex: Female : 1960 Arrival Date: 11/04/2021 Time: 22:49 Bed 19 Private MD: ED Physician Ponce Otero HPI: 11/05 00:00 This 60 yrs old Female presents to ER via Ambulatory with complaints of Back Pain, mh7 Nausea, Anxiety. 00:00 The patient presents to the emergency department with a history of substance abuse, mh7 Type: marijuana, 2 gummies, tonight. Onset: The symptoms/episode began/occurred today. Past psychiatric history: Prior diagnosis: depression. Associated signs and symptoms: Pertinent positives; anxiety, nausea, palpitations, Pertinent negatives: abdominal pain, chest pain, chills, delusions, fever, hallucinations, headache, homicidal ideation, night sweats, paranoia, shortness of breath, suicide ideation, tremor, vomiting. Severity of symptoms: At their worst the symptoms were moderate today, in the emergency department the symptoms have improved moderately. 00:00 States that she took 2 CBD gummi and her prescribed hydrocodone then started feeling mh7 anxious and nauseous. She had injury to her back last week and found to have fractures. Denies any suicidal or homicidal ideation. Denies any auditory or visual hallucinations.. Historical: - Allergies: 11/04 23:01 No Known Allergies; ld1 - PMHx: 23:01 depressive disorder; High Cholesterol; Hypertension; ld1 - PSHx: 23:01 section; ld1 - Immunization history:: Adult Immunizations up to date, Client reports receiving the 2nd dose of the Covid vaccine. - Social history:: Smoking status: Patient denies any tobacco usage or history of. Patient uses alcohol, on a daily basis. ROS: 11/05 00:00 Constitutional: Negative for fever, chills, and weight loss, Eyes: Negative for injury, mh7 pain, redness, and discharge, ENT: Negative for injury, pain, and discharge, Neck: Negative for injury, pain, and swelling, Respiratory: Negative for shortness of breath, cough, wheezing, and pleuritic chest pain, : Negative for injury, bleeding, discharge, and swelling, MS/Extremity: Negative for injury and deformity, Skin: Negative for injury, rash, and discoloration, Neuro: Negative for headache, weakness, numbness, tingling, and seizure, Psych: Negative for depression, anxiety, suicide ideation, homicidal ideation, and hallucinations, Allergy/Immunology: Negative for hives, rash, and allergies, Endocrine: Negative for neck swelling, polydipsia, polyuria, polyphagia, and marked weight changes, Hematologic/Lymphatic: Negative for swollen nodes, abnormal bleeding, and unusual bruising. Cardiovascular: Negative for chest pain, edema, orthopnea, paroxysmal nocturnal dyspnea. Abdomen/GI: Negative for abdominal pain, vomiting, diarrhea, abdominal cramps, abdominal distension, anorexia, dysphagia, black/tarry stool, rectal pain, rectal bleeding, bowel incontinence, flatulence. Exam: 00:00 Head/Face: Normocephalic, atraumatic. Eyes: Pupils equal round and reactive to light, mh7 extra-ocular motions intact. Lids and lashes normal. Conjunctiva and sclera are non-icteric and not injected. Cornea within normal limits. Periorbital areas with no swelling, redness, or edema. Neck: Trachea midline, no thyromegaly or masses palpated, and no cervical lymphadenopathy. Supple, full range of motion without nuchal rigidity, or vertebral point tenderness. No Meningismus. Chest/axilla: Normal chest wall appearance and motion. Nontender with no deformity. No lesions are appreciated. Cardiovascular: Regular rate and rhythm with a normal S1 and S2. No gallops, murmurs, or rubs. Normal PMI, no JVD. No pulse deficits. Respiratory: Lungs have equal breath sounds bilaterally, clear to auscultation and percussion. No rales, rhonchi or wheezes noted. No increased work of breathing, no retractions or nasal flaring. Abdomen/GI: Soft, non-tender, with normal bowel sounds. No distension or tympany. No guarding or rebound. No evidence of tenderness throughout. Skin: Warm, dry with normal turgor. Normal color with no rashes, no lesions, and no evidence of cellulitis. MS/ Extremity: Pulses equal, no cyanosis. Neurovascular intact. Full, normal range of motion. Neuro: Awake and alert, GCS 15, oriented to person, place, time, and situation. Cranial nerves II-XII grossly intact. Motor strength 5/5 in all extremities. Sensory grossly intact. Cerebellar exam normal. Normal gait. Psych: Awake, alert, with orientation to person, place and time. Behavior, mood, and affect are within normal limits. 00:00 Constitutional: The patient appears in no acute distress, alert, awake, anxious. Vital Signs: 11/04 23:01 BP 147 / 99; Pulse 98; Resp 18; Temp 98.6; Pulse Ox 99% on R/A; Weight 90.72 kg; Height ld1 5 ft. 3 in. (160.02 cm); Pain 8/10; 23:30 BP 151 / 98; Pulse 95; Pulse Ox 96% on R/A; Pain 7/10; ag7 11/05 00:45 BP 143 / 101; Pulse 99; Resp 16 S; Pulse Ox 92% ; Pain 7/10; ag7 02:00 BP 126 / 76; Pulse 98; Pulse Ox 91% on R/A; ag7 03:00 BP 149 / 95; Pulse 98; Pulse Ox 93% ; Pain 7/10; ag7 11/04 23:01 Body Mass Index 35.43 (90.72 kg, 160.02 cm) ld1 MDM: 04:28 Differential diagnosis: drug withdrawal. depression, substance abuse, anxiety. Data [facility] reviewed: vital signs, nurses notes, lab test result(s), CBC, electrolytes, urinalysis, EKG, radiologic studies. Data interpreted: Pulse oximetry: on room air is 99 %. Interpretation: normal. Counseling: I had a detailed discussion with the patient and/or guardian regarding: the historical points, exam findings, and any diagnostic results supporting the discharge/admit diagnosis, the presence of at least one elevated blood pressure reading (>120/80) during this emergency department visit, lab results, radiology results, the need for outpatient follow up, to return to the emergency department if symptoms worsen or persist or if there are any questions or concerns that arise at home. Response to treatment: the patient's symptoms have resolved after treatment, the patient's blood pressure is in an acceptable range, mental status has returned to baseline, the patient no longer shows bradycardia, the patient is not short of breath, the patient is not tachycardic, the patient's temperature has normalized, patient is well hydrated. 04:30 Patient medically screened. [facility] 11/05 00:10 Order name: Acetaminophen; Complete Time: 02:35 11/05 00:10 Order name: Basic Metabolic Panel; Complete Time: 02:35 11/05 00:10 Order name: CBC with Diff; Complete Time: :52 11/05 00:10 Order name: ETOH Level; Complete Time: :52 11/05 00:10 Order name: Hepatic Function; Complete Time: 02:35 11/05 00:10 Order name: PT-INR; Complete Time: :52 11/05 00:10 Order name: Ptt, Activated; Complete Time: :52 11/05 00:10 Order name: Salicylate; Complete Time: :52 11/05 00:10 Order name: Urine Drug Screen; Complete Time: :52 11/05 00:37 Order name: Urine Dipstick-Ancillary; Complete Time: 01:52 [facility] 11/05 02:36 Order name: Magnesium; Complete Time: 03:08 11/05 00:10 Order name: EKG; Complete Time: 00:10 11/05 00:10 Order name: EKG - Nurse/Tech; Complete Time: 00:59 11/05 00:10 Order name: IV Saline Lock; Complete Time: 00:30 11/05 00:10 Order name: Labs collected and sent; Complete Time: 00:31 11/05 00:10 Order name: Suicide Screening ([place]); Complete Time: 02:36 11/05 00:10 Order name: Urine Dipstick-Ancillary (obtain specimen); Complete Time: 00:37 7 Administered Medications: 00:30 Drug: NS 0.9% 1000 ml Route: IV; Rate: 1000 ml; Site: left hand; ag7 01:30 Follow up: IV Status: Completed infusion; IV Intake: 1000ml ag7 00:30 Drug: Ativan (LORazepam) 1 mg Route: IVP; Site: left hand; ag7 01:00 Follow up: Response: No adverse reaction ag7 00:30 Drug: Zofran (Ondansetron) 4 mg Route: IVP; Site: left hand; ag7 01:00 Follow up: Response: No adverse reaction ag7 02:59 Drug: Potassium Effervescent Tablet 50 mEq Route: PO; vc1 04:37 Follow up: Response: No adverse reaction ag7 03:52 Drug: Magnesium 400 mg Route: PO; ag7 04:37 Follow up: Response: No adverse reaction ag7 04:29 Drug: Ativan (LORazepam) 1 mg Route: IVP; Site: left forearm; ag7 04:38 Follow up: Response: No adverse reaction ag7 Disposition Summary: 11/05/21 04:30 Discharge Ordered Location: Home [facility] Problem: new [facility] Symptoms: have improved [facility] Condition: Stable [facility] Diagnosis - Cannabis abuse with cannabis-induced anxiety disorder 7 - Low back pain [facility] Followup: [facility] - With: Private Physician - When: 1 - 2 days - Reason: Worsening of condition, Recheck today's complaints, Continuance of care, Re-evaluation by your physician Discharge Instructions: - Discharge Summary Sheet [facility] - Chronic Back Pain [facility] - Cannabis Use Disorder [facility] - Musculoskeletal Pain [facility] - Back Injury Prevention, [id number] [facility] Forms: - Medication Reconciliation Form [facility] - Thank You Letter [facility] - Antibiotic Education [facility] - Prescription Opioid Use [facility] Signatures: Dispatcher [employer] Ponce Burgess MD MD 7 Ansley Vazquez RN RN ld1 Kenya Burrows RN RN vc1 Janice Esquivel RN RN 7
--- NOTE | 2021-11-05 04:32 | ER ---
Nurse's Notes [facility] Name: Patience Montejo Age: 60 yrs Sex: Female : 1960 Arrival Date: 11/04/2021 Time: 22:49 Bed 19 Private MD: Diagnosis: Cannabis abuse with cannabis-induced anxiety disorder;Low back pain Presentation: 11/04 23:01 Chief complaint: Patient states: Nausea, heart racing, shaky, bloated, back pain - pt ld1 is worried she combined too many pain medications. Coronavirus screen: At this time, the client does not indicate any symptoms associated with coronavirus-19. Ebola Screen: No symptoms or risks identified at this time. Initial Sepsis Screen: Does the patient meet any 2 criteria? No. Patient's initial sepsis screen is negative. Does the patient have a suspected source of infection? No. Patient's initial sepsis screen is negative. Risk Assessment: Do you want to hurt yourself or someone else? Patient reports no desire to harm self or others. Onset of symptoms was November 04, 2021 at 23:04. 23:01 Method Of Arrival: Ambulatory ld1 23:01 Acuity: PEDRO 3 ld1 Triage Assessment: 23:04 General: Appears in no apparent distress. uncomfortable, Behavior is cooperative, ld1 anxious. Pain: Complains of pain in back Pain does not radiate. Pain currently is 8 out of 10 on a pain scale. EENT: No signs and/or symptoms were reported regarding the EENT system. Neuro: Level of Consciousness is awake, alert, obeys commands, Oriented to person, place, time, situation. Cardiovascular: Capillary refill < 3 seconds Patient's skin is warm and dry. Respiratory: Airway is patent Respiratory effort is even, unlabored. GI: Abdomen is round non-distended, Reports bloating, nausea. : No signs and/or symptoms were reported regarding the genitourinary system. Derm: No signs and/or symptoms reported regarding the dermatologic system. Musculoskeletal: No signs and/or symptoms reported regarding the musculoskeletal system. Historical: - Allergies: 23:01 No Known Allergies; ld1 - PMHx: 23:01 depressive disorder; High Cholesterol; Hypertension; ld1 - PSHx: 23: section; ld1 - Immunization history:: Adult Immunizations up to date, Client reports receiving the 2nd dose of the Covid vaccine. - Social history:: Smoking status: Patient denies any tobacco usage or history of. Patient uses alcohol, on a daily basis. Screenin:22 Abuse screen: Denies threats or abuse. Nutritional screening: No deficits noted. ag7 Tuberculosis screening: No symptoms or risk factors identified. Fall Risk No fall in past 12 months (0 pts). No secondary diagnosis (0 pts). No IV (0 pts). Ambulatory Aid- None/Bed Rest/Nurse Assist (0 pts). Gait- Normal/Bed Rest/Wheelchair (0 pts) Mental Status- Oriented to own ability (0 pts). Total Robles Fall Scale indicates No Risk (0-24 pts). Assessment: 23:20 General: Appears in no apparent distress. Behavior is calm, cooperative, appropriate ag7 for age. Pain: Complains of pain in back Pain currently is 8 out of 10 on a pain scale. Quality of pain is described as aching, sharp, Pain began suddenly, Is continuous, Alleviated by nothing. Neuro: Level of Consciousness is awake, alert, obeys commands, Oriented to person, place, situation, Appropriate for age Car Wrecker are equal bilaterally Moves all extremities. Speech is normal. Cardiovascular: Heart tones S1 S2 present Capillary refill < 3 seconds in bilateral fingers Patient's skin is warm and dry. Respiratory: Airway is patent Trachea midline Respiratory effort is even, unlabored, Respiratory pattern is regular, symmetrical, Breath sounds are clear bilaterally. Musculoskeletal: Reports pain in back. 11/05 01:00 Reassessment: No changes from previously documented assessment. Patient and/or family ag7 updated on plan of care and expected duration. Pain level reassessed. Patient is alert, oriented x 3, equal unlabored respirations, skin warm/dry/pink. 02:00 Reassessment: No changes from previously documented assessment. ag7 03:00 Reassessment: Patient and/or family updated on plan of care and expected duration. Pain ag7 level reassessed. Patient is alert, oriented x 3, equal unlabored respirations, skin warm/dry/pink. Patient moaning, continue to c/o of lower back pain 12/04 Patient states feeling better. 04:00 Reassessment: No changes from previously documented assessment. ag7 Vital Signs: 11/04 23:01 BP 147 / 99; Pulse 98; Resp 18; Temp 98.6; Pulse Ox 99% on R/A; Weight 90.72 kg; Height ld1 5 ft. 3 in. (160.02 cm); Pain 8/10; 23:30 BP 151 / 98; Pulse 95; Pulse Ox 96% on R/A; Pain 7/10; ag7 11/05 00:45 BP 143 / 101; Pulse 99; Resp 16 S; Pulse Ox 92% ; Pain 7/10; ag7 02:00 BP 126 / 76; Pulse 98; Pulse Ox 91% on R/A; ag7 03:00 BP 149 / 95; Pulse 98; Pulse Ox 93% ; Pain 7/10; ag7 11/04 23:01 Body Mass Index 35.43 (90.72 kg, 160.02 cm) ld1 ED Course: 11/04 22:49 Patient arrived in ED. bp1 23:04 Triage completed. ld1 23:04 Arm band placed on right wrist. ld1 23:09 Janice Esquivel, RN is Primary Nurse. ag7 23:20 Inserted saline lock: 20 gauge in left wrist, using aseptic technique. Blood collected. ag7 23:22 Patient has correct armband on for positive identification. Bed in low position. Call ag7 light in reach. Side rails up X 1. Adult w/ patient. 23:22 No provider procedures requiring assistance completed. ag7 23:29 Ponce Otero MD is Attending Physician. 7 11/05 00:58 EKG done, by ED staff, reviewed by Ponce Otero MD. jw7 05:03 IV discontinued, intact, bleeding controlled, No redness/swelling at site. Pressure ag7 dressing applied, IV 20 gauge d/c to left wrist. Administered Medications: 00:30 Drug: NS 0.9% 1000 ml Route: IV; Rate: 1000 ml; Site: left hand; ag7 01:30 Follow up: IV Status: Completed infusion; IV Intake: 1000ml ag7 00:30 Drug: Ativan (LORazepam) 1 mg Route: IVP; Site: left hand; ag7 01:00 Follow up: Response: No adverse reaction ag7 00:30 Drug: Zofran (Ondansetron) 4 mg Route: IVP; Site: left hand; ag7 01:00 Follow up: Response: No adverse reaction ag7 02:59 Drug: Potassium Effervescent Tablet 50 mEq Route: PO; vc1 04:37 Follow up: Response: No adverse reaction ag7 03:52 Drug: Magnesium 400 mg Route: PO; ag7 04:37 Follow up: Response: No adverse reaction ag7 04:29 Drug: Ativan (LORazepam) 1 mg Route: IVP; Site: left forearm; ag7 04:38 Follow up: Response: No adverse reaction ag7 Medication: 11/04 23:23 VIS not applicable for this client. ag7 Intake: 11/05 01:30 IV: 1000ml; Total: 1000ml. ag7 Outcome: 04:30 Discharge ordered by . [facility] 05:03 Discharged to home ambulatory. 7 05:03 Condition: stable 05:03 Discharge instructions given to patient, significant other, Instructed on discharge instructions, follow up and referral plans. medication usage, Demonstrated understanding of instructions, follow-up care, medications. 05:05 Patient left the ED. 7 Signatures: Peggy Macedo Maurice, MD MD 7 Ansley Vazquez RN RN ld1 Kenya Burrows RN RN vc1 Ana Galeano 7 Janice Esquivel RN RN 7
[2021-11-05 05:13] VITALS: TEMP 98.6
[2021-11-05 05:25] VITALS: BP 149/95; O2SAT 93
--- NOTE | 2021-11-05 09:11 | EKG ---
Test Date: 2021-11-05 Test Time: 00:52:16 Marketing Area Manager: DAVID MEASUREMENT RESULTS: Intervals: Rate: 96 WV: 184 QRSD: 82 QT: 424 QTc: 535 [place]: P: 72 WV: 184 QRS: -4 T: 34 INTERPRETIVE STATEMENTS: Normal sinus rhythm Possible Anterior infarct, age undetermined Abnormal ECG Compared to ECG 04/09/2020 13:20:45 No significant changes Electronically Signed On 11-05-21 09:10:35 CDT by Ramone Alexandra
== END 2021-11-05 05:05 | disposition home or self-care (01) ==
LOC: ER 22:46
DX: F12.180 Cannabis abuse with cannabis-induced anxiety disorder (principal); M54.50 Low back pain, unspecified; F32.A Depression, unspecified; I10 Essential (primary) hypertension
CPT/HCPCS: 93005; 85025; 80048; 36415; 80320; 83735; 80329 ×2; 85610; 80076; 85730; 81003; 80307; 99284; J7030; J2405